=== PATIENT | female | born 2000 | race Caucasian/White ===

== ENCOUNTER 2023-08-13 20:56 | Emergency (ER) | payer OTHER, SELFPAY ==
[2023-08-13 21:30] VITALS: BP 110/57; PULSE 88; RESP 15; TEMP 36.6; O2SAT 98; BMI 22.0
[2023-08-13 21:45] LABS: MANUAL DIFF FLAG NO
[2023-08-13 21:48] LABS: Basophils Percent Auto 0.5 % (0-2); Eosinophils Absolute Auto 0.3 X10*3/uL (0.0-0.4); Hematocrit 40.5 % (37.0-47.0); Hemoglobin 13.7 g/dl (12.0-16.0); Imm Gran Abs Auto 0.02 X10*3/uL (0.00-0.03); Imm Gran Pct Auto 0.2 % (0.0-0.4); Lymphocytes Absolute Auto 2.6 X10*3/uL (1.2-4.9); Lymphocytes Percent Auto 30.5 % (20-40); Mean Corpuscular HGB Conc 33.8 g/dl (31.0-35.0); Mean Corpuscular Volume 94.6 fL (80.0-98.0); Mean Platelet Volume 10.1 fL (9.4-12.3); Monocytes Absolute Auto 0.6 X10*3/uL (0.1-1.2); Monocytes Percent Auto 6.7 % (2-11); Neutrophils Percent Auto 58.1 % (45-73); Platelet Count 299 X10*3/uL (160-400); Red Blood Count 4.28 X10*6/uL (4.20-5.50); Red Cell Distribution Width 12.5 % (11.0-16.0); White Blood Count 8.5 X10*3/uL (4.8-10.8)
[2023-08-13 22:08] LABS: Alanine Aminotransferase 13 U/L (0-31); Albumin Level 4.3 g/dL (3.5-5.0); Alkaline Phosphatase 35 U/L (39-117); Anion Gap 13 (12-20); Aspartate Amino Transferase 19 U/L (5-31); Bilirubin Total 0.7 mg/dL (0.0-1.0); Blood Urea Nitrogen 21 mg/dL (9-16); Calcium 9.1 mg/dL (8.4-10.2); Carbon Dioxide 24 mmol/L (22-29); Chloride 106 mmol/L (96-108); Creatinine Clr Calc Pharmacy 72.7; Estimated Glomerular Filt Rate > 60; Glucose Random 78 mg/dL (60-115); Sodium 139 mmol/L (135-145); Total Protein 7.8 g/dL (6.5-8.0)
[2023-08-14 00:08] VITALS: BP 98/53; PULSE 74; RESP 18; TEMP 36.7; O2SAT 100
--- NOTE | 2023-08-14 00:08 | ED.GENADULT ---
HPI - General Adult General Chief complaint: Skin/Abscess/Foreign Body Stated complaint: Abscess left leg Time Seen by Provider: 08/14/23 00:07 Source: patient and family (patient's parents) Mode of arrival: ambulatory Limitations: no limitations History of Present Illness HPI narrative: Patient is a 22 year old assigned female at with a history of pilonidal abscesses presenting to the emergency department today with a left lower abscess. Patient states that over the last month she has been dealing with a swollen area to her left lower leg. Patient states that at one point she was able to squeeze pus out of it. Patient denies any dizziness, lightheadedness, abdominal pain, nausea, vomiting, fever, chills, blurry vision, double vision, loss of vision, chest pain, difficulty breathing, shortness of breath, back pain, night sweats, pain with urination, increased urinary frequency, increased urinary urgency, blood in her urine or stool, syncope or a near syncopal episode, recent trauma or falls, bowel incontinence, bladder incontinence, bowel retention, bladder retention, or any other complaints at this time. Onset (ago): month(s) (1) Location: left and lower extremity Severity: mild Severity scale (1-10): 3 Quality: dull Pain Consistency: constant Relieving factors: none Exacerbating factors: none Associated symptoms: denies other symptoms Treatments prior to arrival: other (warm compresses) Related Data Previous Rx's ?Medication ?Instructions ?Recorded cephalexin 500 mg capsule 500 mg PO Q6H 7 days #28 caps 08/14/23 Allergies Allergy/AdvReac Type Severity Reaction Status Date / Time haloperidol [From HALDOL] Allergy Severe DIFFICULTY Unverified 08/13/23 21:35 BREATHING Sulfa (Sulfonamide Allergy Mild HIVES Unverified 08/13/23 21:35 Antibiotics) [SULFA (SULFONAMIDE ANTIBIOTICS)] Review of Systems Constitutional: Constitutional: Reports no additional constitutional complaints, Denies chills, Denies fever(s) and Denies night sweats Eyes: Eyes: Reports no additional eye complaints, Denies blurry vision, Denies change in vision, Denies diplopia, Denies eye discharge, Denies loss of vision and Denies eye pain ENT: Denies dizziness Cardiovascular: Cardiovascular: Reports no additional cardiovascular complaints, Denies chest pain, Denies lightheadedness, Denies Loss of Consciousness and Denies dyspnea Respiratory: Respiratory: Reports no additional respiratory complaints and Denies dyspnea Gastrointestinal: Gastrointestinal: Reports no additional gastrointestinal complaints, Denies abdominal pain, Denies melena, Denies hematochezia, Denies change in bowel habits and Denies change in stool character Genitourinary: Genitourinary: Denies hematuria, Denies urinary frequency, Denies dysuria, Denies urinary incontinence, Denies urinary hesitancy and Denies urinary urgency Musculoskeletal: Musculoskeletal: Reports no additional musculoskeletal complaints, Denies numbness and Denies tingling Comments: left lower extremity abscess Neurologic: Denies dizziness, Denies loss of vision, Denies numbness and Denies tingling Psychiatric: Psychiatric: Reports no additional psychiatric complaints Endocrine: Endocrine: Reports no additional endocrine complaints Hematologic/Lymphatic: Hematologic/Lymphatic: Reports no additional hematologic/lymphatic complaints Allergic/Immunologic: Allergic/Immunologic: Reports no additional allergic/immunologic complaints PMFSH Past Medical History Attestation statement: The following information was validated with the patient. (all information validated with the patient's parents) Source: old records reviewed, obtained from family (patient's parents provided additional history and confirmed the history provided by the patient.) and nursing notes reviewed Social History Social History Advance Directives: No Advance Directives Information Provided: Yes Physical Exam ED Vital Signs: Vital Signs - 24 hr 08/13/23 21:30 08/14/23 00:08 08/14/23 00:47 Temperature 97.9 F 98.0 F 98 F Pulse Rate 88 74 74 Respiratory Rate 15 18 18 Blood Pressure 110/57 L 98/53 L 98/53 L Pulse Oximetry 98 100 100 Oxygen Delivery Method Room Air Room Air Room Air BMI result Body Mass Index 22.0 Const General: cooperative, no acute distress, alert and awake Nutritional Appearance: well nourished Orientation/consciousness: patient oriented x3 Limitations: no limitations HENMT Head: Yes normal to inspection and Yes atraumatic Ears: hearing grossly normal bilaterally and external ears normal General nose exam: Normal external nose present, no nasal discharge noted and no epistaxis Face and sinus: Yes normal facial exam, No abrasion and No laceration Mouth: Normal oral and palatal mucosa present, no drooling and no muffled voice Eyes General: appearance normal, both eyes and all related structures Periorbital: periorbital findings normal Eyelids: Yes eyelids normal Conjunctivae: conjunctivae normal Pupils: Equal, round and reactive pupils present EOM: EOMs intact bilaterally Neck Neck: Yes normal visual inspection, Yes full ROM and Yes no lymphadenopathy Chest Chest palpation & inspection: normal inspection of the chest Resp Effort & Inspection: normal respiratory effort and able to speak in complete sentences GI Inspection: Yes normal to inspection Neuro General: patient oriented x3 and moves all extremities Cranial nerves: Yes Equal, round and reactive pupils present Cognition (Neuro): normal cognition Motor exam (neuro): 5/5 motor strength present throughout Sensory Exam: Normal double simultaneous stimulation for sensation Coordination: [id number] test normal Extrem General: Yes full ROM and Yes capillary refill normal Ankle/foot/toe images: 1. small area of erythema and warmth with no fluctuance Psych Appearance: grossly normal Mental Status: mental status grossly normal Affect: normal affect Attitude: cooperative Thought process: Normal thought process present Thought content: Normal thought content present Insight: Good insight present (Psych) Procedures Procedure Narrative Procedure Narrative: I performed a bed side ultrasound on the erythematous area of the left lower leg. No abscess was appreciated. Medical Decision Making Medical Decision Making MDM Narrative: Patient is a 22 year old assigned female at with a history of pilonidal abscesses presenting to the emergency department today with an abscess to the left lower leg. Patient's physical exam was as noted in the physical exam portion of this note. Patient's blood work was unremarkable. I explained my physical exam findings as well as all test results to the patient and the patient's parents. I answered all questions asked by the patient and the patient's parents. I stressed the importance of the patient taking her medication as prescribed. I stressed the importance of the patient following up with her primary care provider. I stressed the importance of the patient returning to the emergency department immediately if her symptoms were to worsen or if she were to develop any dizziness, shortness of breath, difficulty breathing, chest pain, blurry vision, loss of vision, nausea, vomiting, abdominal pain, fever, chills, back pain, or any other complaints. Patient and the patient's parents verbalized agreement and understanding with this treatment plan and discharge. Differential Diagnosis Differential Diagnoses: The differential diagnosis associated with the presentation includes Abscess Cyst Cellulitis Admission/Observation Consideration of admission/observation: Escalation of care including admission/observation considered Patient would have been admitted to the hospital had her work up had any findings where hospital admission was appropriate and her clinical presentation warranted hospital admission. Lab Data MDM Lab Attestation statement: I reviewed the patient's lab results. My interpretation of these studies and their corresponding values is that they are grossly normal. 08/13/23 21:42 08/13/23 21:42 Labs: Lab Results 08/13/23 Range/Units 21:42 WBC 8.5 (4.8-10.8) X10*3/uL RBC 4.28 (4.20-5.50) X10*6/uL Hgb 13.7 (12.0-16.0) g/dl Hct 40.5 (37.0-47.0) % MCV 94.6 (80.0-98.0) fL MCH 32.0 (27.0-33.0) pg MCHC 33.8 (31.0-35.0) g/dl RDW 12.5 (11.0-16.0) % Plt Count 299 (160-400) X10*3/uL MPV 10.1 (9.4-12.3) fL Immature Gran % (Auto) 0.2 (0.0-0.4) % Neut % (Auto) 58.1 (45-73) % Lymph % (Auto) 30.5 (20-40) % Geary % (Auto) 6.7 (2-11) % Eos % (Auto) 4.0 (0-4) % Baso % (Auto) 0.5 (0-2) % Lymph # (Auto) 2.6 (1.2-4.9) X10*3/uL Geary # (Auto) 0.6 (0.1-1.2) X10*3/uL Eos # (Auto) 0.3 (0.0-0.4) X10*3/uL Baso # (Auto) 0.0 (0.0-0.2) X10*3/uL Abs Immat Gran (auto) 0.02 (0.00-0.03) X10*3/uL Absolute Neuts (auto) 5.0 (2.0-8.3) x10*3/uL Absolute Nucleated RBC 0.000 (0.0-0.012) X10*3/uL Nucleated RBC % (auto) 0.0 (0.0-0.2) /100WBC Sodium 139 (135-145) mmol/L Potassium 4.0 (3.3-5.1) mmol/L Chloride 106 (96-108) mmol/L Carbon Dioxide 24 (22-29) mmol/L Anion Gap 13 (12-20) BUN 21 H (9-16) mg/dL Creatinine 0.96 (0.5-1.4) mg/dL Estim Creat Clear Calc 72.7 Estimated GFR > 60 Random Glucose 78 (60-115) mg/dL Calcium 9.1 (8.4-10.2) mg/dL Total Bilirubin 0.7 (0.0-1.0) mg/dL AST 19 (5-31) U/L ALT 13 (0-31) U/L Alkaline Phosphatase 35 L (39-117) U/L Total Protein 7.8 (6.5-8.0) g/dL Albumin 4.3 (3.5-5.0) g/dL Independent Historian Clinical information obtained from an independent historian. History obtained from or confirmed by: Parent (patient's parents provided additional history and confirmed the history provided by the patient) Tests considered The following testing was considered but not selected: I considered a formal ultrasound of the area of concern however, the patient's clinical presentation did not warrarnt that at this time. I discussed this with the patient and her parents who verbalized understanding and agreement. Prescription Management I considered prescription management with: Antibiotic (patient prescribed an antibiotic.) Discharge Plan Discharge Clinical Impression: Abscess Patient Disposition: Home, Self-Care Instructions: Abscess (ED) Additional Instructions: The area did not have any discrete abscess to drain on ultrasound. Apply warm compresses to the area. Take your antibiotic as prescribed. Follow up with your primary care provider and a general surgeon. Return to the emergency department immediately if your symptoms worsen or if you develop any dizziness, shortness of breath, difficulty breathing, chest pain, blurry vision, loss of vision, nausea, vomiting, abdominal pain, fever, chills, back pain, or any other complaints. Prescriptions: New cephalexin 500 mg capsule 500 mg PO Q6H 7 Days Qty: 28 0RF Referrals: [facility] [place] General Surgeons [Provider Group] (Call to establish and follow up with a general surgeon for possible future drainage of the area.) [facility] [place] (Call to establish and follow up with a primary care provider. If you already have a primary care provider, please follow up with them.) [facility] [place] [facility] [place]] [facility] [place] [facility] [place]] Stand Alone Forms: Work/School Release Interventions: ED Discharge Assessment Last Done: 08/14/23 00:47 Discharge Date/Time: 08/14/23 00:48 Print Language: Djiboutian
[2023-08-14 00:47] VITALS: BP 98/53; PULSE 74; RESP 18; TEMP 36.6; O2SAT 100
== END 2023-08-14 00:48 | disposition home or self-care (01) ==
PROVIDERS: Emergency Provider Emergency Medicine
DX: L02.416 Cutaneous abscess of left lower limb (principal)
CPT/HCPCS: 36415; 80053; 85025; 99283

== ENCOUNTER 2023-08-19 23:43 | Emergency (ER) | payer OTHER, SELFPAY ==
[2023-08-19 23:51] VITALS: BP 108/64; PULSE 95; RESP 16; TEMP 36.8; O2SAT 98; BMI 22.7
--- NOTE | 2023-08-20 01:34 | ED.SKABFB ---
HPI - Skin/Abscess/Foreign Bdy General Chief complaint: Skin/Abscess/Foreign Body Stated complaint: lefy lower leg abcess Time Seen by Provider: 08/20/23 01:33 Source: patient Mode of arrival: ambulatory Limitations: no limitations History of Present Illness HPI narrative: 22-year-old female who presents emergency department for evaluation of abscess to her left pretibial area of her lower extremity. Patient was seen on 08/14/2023 here in the emergency department for an early abscess that have been present for approximately 1 month. It was felt that the abscess was not ready to be drained and she was started on Keflex 4 times a day for 7 days. Patient has been applying warm compresses. Patient states that the erythema has gotten worse and the area in his center of the erythema has turned black and was raised. She denied fever, chills, fatigue or weakness. Related Data Previous Rx's ?Medication ?Instructions ?Recorded cephalexin 500 mg capsule 500 mg PO Q6H 7 days #28 caps 08/14/23 doxycycline hyclate 100 mg tablet 100 mg PO Q12H 5 days #10 tabs 08/20/23 Allergies Allergy/AdvReac Type Severity Reaction Status Date / Time haloperidol [From HALDOL] Allergy Severe DIFFICULTY Verified 08/19/23 23:52 BREATHING Sulfa (Sulfonamide Allergy Mild HIVES Verified 08/19/23 23:52 Antibiotics) [SULFA (SULFONAMIDE ANTIBIOTICS)] Review of Systems Review of Systems: Yes all other systems are reviewed and are negative [facility] Social History Social History Advance Directives: No Advance Directives Information Provided: No Do you have a plan to hurt others: No Plan Physical Exam Vital Signs: Vital Signs: Last Vital Signs Temp 98.2 F 08/19/23 23:51 Pulse 95 08/19/23 23:51 Resp 16 08/19/23 23:51 BP 108/64 08/19/23 23:51 Pulse Ox 98 08/19/23 23:51 O2 Del Method Room Air 08/19/23 23:51 BMI result Body Mass Index 22.7 Vital signs were normal Exam Left lower extremity: The patient has an area of erythema measuring approximately 10 by 5 cm with an abscess in the center of the erythema with a eschar in the middle of the abscess. The erythema is warm to touch. Her extremities neurovascular intact. Medical Decision Making Medical Decision Making MDM Narrative: 22-year-old female who presents emergency department for evaluation of abscess to the left lower extremity with surrounding cellulitis. Patient was seen in the emergency department on 08/14/2023 and was started on Keflex, she has been applying warm compresses. There is erythema which is warm to the touch with an abscess in the center of the erythema which is flocculent. Differential diagnosis: ?Includes but is not limited to cellulitis, abscess Following evaluation was ordered: Wound culture Patient was initially treated with the following: Doxycycline 100 mg orally, ibuprofen 400 mg orally Course: Patient's abscess was incised, drained and packed with iodoform gauze. The patient did have pain during the procedure but she tolerated the procedure well. Patient will be treated with doxycycline 100 mg q.12 hours x5 days. She was advised to take Tylenol and ibuprofen for pain. Patient was given printed and verbal instructions and discharged home. She was also given a work note. Independent Historian Clinical information obtained from an independent historian. History obtained from or confirmed by: Parent Mother who is a nurse Prescription Management I considered prescription management with: Antibiotic Procedures Abscess I/D Site: lower extremity Side (if applicable): left Local Anesthetic: lidocaine 1% Amount of anesthesia used (mL): 10 Technique: incised with blade (#11 Scalp) Amount of fluid expressed (mL): 15 Sent for culture/gram staining?: Yes Irrigation: No Packing used?: iodoform Discharge Plan Discharge Clinical Impression: Cellulitis, Abscess of left leg, Encounter for incision and drainage procedure Patient Disposition: Home, Self-Care Additional Instructions: Abscess Discharge Instructions You were treated today for an abscess( collection of pus under the skin). The abscess was cut, the pus was drained out and the abscess and the wound was packed with a piece of gauze packing. Change the outside gauze daily or if it gets soaked through with pus change it sooner. Try not to pull out the gauze packing when you remove the outside gauze. The gauze packing needs to stay in place for 3 days to help the pus drain out of the abscess. If the gauze falls out before 3 days and it DOES NOT need to be replaced. You need to remove the gauze in 3 days by pulling on the end until all of the gauze comes out. Take doxycycline 100 mg pills, one pill every 12 hours for 5 days. This is an antibiotic that will help fight the infection. Take ibuprofen 200mg pills,2 pills every 6 hours as needed for pain, Also take Tylenol(acetaminophen) 325 mg pills, 2 pills every 6 hours as needed for pain. Apply warm compresses or a heating pad on low for 15 minutes 4-6 times a day. This increases the blood flow to the area and helps the healing process. Keep your leg elevated, this will also help the healing process. Watch for signs of worsening infection which include fever, increased pain, increased redness or increased swelling, red lines traveling away from the wound. IF you think the infection is getting worse or if you develop any new symptoms that are concerning you, then return to the Emergency Department or follow up with your doctor for a recheck. Please follow up with your doctor in 2 days for a recheck. Please see the work note Prescriptions: New doxycycline hyclate 100 mg tablet 100 mg PO Q12H 5 Days Qty: 10 0RF No Action cephalexin 500 mg capsule 500 mg PO Q6H 7 Days Qty: 28 0RF Stand Alone Forms: Work/School Release Print Language: Citizen Of [place]
[2023-08-20] MEDS: Doxycycline Monohydrate 100 MG CAPSULE PO (02:27)
[2023-08-20] MEDS: Ibuprofen 400 MG TABLET PO (02:27)
[2023-08-20] MEDS: Lidocaine HCl 1 % MPF 5 ML VIAL INFILTRATI ×2 (02:28)
[2023-08-20 02:35] VITALS: BP 103/63; PULSE 74; RESP 16; TEMP 37; O2SAT 100
== END 2023-08-20 02:40 | disposition home or self-care (01) ==
PROVIDERS: Emergency Provider Emergency Medicine Emergency Medical Services
DX: L02.416 Cutaneous abscess of left lower limb (principal)
CPT/HCPCS: 10060; 87070; 87077; 87186; 87205; 99283; 99284

== ENCOUNTER 2024-07-04 01:12 | Inpatient (IN) | payer OTHER, SELFPAY ==
[2024-07-04 01:14] VITALS: BP 120/58; PULSE 82; RESP 18; TEMP 36.8; O2SAT 100; BMI 23.8
--- NOTE | 2024-07-04 01:24 | ED.PSYCH ---
HPI - Psych General Chief Complaint: Psychiatric Symptoms Stated Complaint: SI with no plan Time Seen by Provider: 07/04/24 01:22 Source: patient Mode of arrival: ambulatory Limitations: no limitations History of Present Illness ED Provider: RAFFI HPI Narrative: 23 yo female with PMH of anxiety and depression not on medications though has been on them in the past. No therapist she notes she has severe anxiety and depression and feels unstable and is very sad. Vague SI, no HI and no plan. She does have a safe place to live. No substance or ETOH use. She states she needs help and to talk to someone. She is very tearful on arrival. MD complaint: feels depressed and anxiety Onset (ago): month(s) Duration: getting worse History of same: Yes Relieving factors: none Exacerbating factors: other Context: significant life stressor Associated psychiatric symptoms: depression Associated symptoms: denies other symptoms Treatments prior to arrival: none Related Data Home Medications ?Medication ?Instructions ?Recorded ?Confirmed No Known Home Meds 07/04/24 07/04/24 Allergies Allergy/AdvReac Type Severity Reaction Status Date / Time haloperidol [From HALDOL] Allergy Severe DIFFICULTY Verified 07/04/24 01:16 BREATHING Sulfa (Sulfonamide Allergy Mild HIVES Verified 07/04/24 01:16 Antibiotics) [SULFA (SULFONAMIDE ANTIBIOTICS)] Review of Systems Review of Systems: Constitutional : No Fever, No Chills ENT/Mouth : No Ear Pain, No Nasal Congestion, No sore throat Eyes: No Eye Pain, No Swelling, No Redness Cardiovascular : No Chest Pain, No SOB Respiratory : No Cough, No Sputum, No Dyspnea Gastrointestinal : No Nausea, No Vomiting, No Diarrhea, No Hematochezia, No Melena Genitourinary : No Dysuria, No Urinary Frequency, No Hematuria Musculoskeletal : No Myalgias Skin : No Skin Lesions, No rash Neuro : No Weakness, No Numbness, No Paresthesias, No Dizziness, No Headache Psych : positive Anxiety, positive Depression, positive SI no HI All other systems reviewed and are negative PMFSH Past Medical History Attestation statement: The following information was validated with the patient. Source: old records reviewed Medical History Anxiety and depression Social History Social History (Updated 07/04/24 @ 01:32 by Yolis Monterroso DO) Patient Tobacco Use Status: Current everyday Tobacco user Do you have a plan to hurt others: No Plan Physical Exam Vital Signs: Vital Signs: Last Vital Signs Temp 98.3 F 07/04/24 01:14 Pulse 82 07/04/24 01:14 Resp 18 07/04/24 01:14 BP 120/58 L 07/04/24 01:14 Pulse Ox 100 07/04/24 01:14 O2 Del Method Room Air 07/04/24 01:14 BMI result Body Mass Index 23.8 Appearance: Alert. Oriented X3. No acute distress. Very tearful and crying Eyes: Pupils equal, round and reactive to light. ENT: Pharynx normal. Neck: Normal inspection. Neck supple. CVS: Normal heart rate and rhythm. Pulses normal. Respiratory: No respiratory distress. Breath sounds normal. Abdomen: Soft and nontender. Skin: Skin warm and dry. Normal skin color. Normal skin turgor. Extremities: No lower extremity edema. No calf ttp Neuro: Oriented X 3. No motor deficit. No sensory deficit. CN2-12 intact Course Course Course Narrative: signed out to Dr. Butterfield pending labs Medical Decision Making Medical Decision Making MDM Narrative: 23 yo female with PMH of anxiety and depression here with c/o worsening mental health, vague SI - no plan. States she needs help. She is not on any substances. At this time basic labs and CARE team consult. Differential Diagnosis Differential Diagnoses: The differential diagnosis associated with the presentation includes anxiety, depression, SI Admission/Observation Consideration of admission/observation: Escalation of care including admission/observation considered physician observation started at 133am External Record Review External record reviewed: Outpatient record Discharge Plan Discharge Clinical Impression: Depression Qualifiers: Depression Type: unspecified Qualified Code(s): F32.A - Depression, unspecified Patient Disposition: Still a Patient Prescriptions: No Action No Known Home Meds Print Language: Lithuanian
[2024-07-04] MEDS: hydrOXYzine HCL 50 MG TABLET PO (02:04)
[2024-07-04 02:44] LABS: MANUAL DIFF FLAG NO
[2024-07-04 02:46] LABS: Basophils Absolute Auto 0.1 X10*3/uL (0.0-0.2); Basophils Percent Auto 0.8 % (0-2); Eosinophils Absolute Auto 0.3 X10*3/uL (0.0-0.4); Eosinophils Percent Auto 4.7 % (0-4); Hematocrit 39.4 % (37.0-47.0); Hemoglobin 13.3 g/dl (12.0-16.0); Imm Gran Abs Auto 0.01 X10*3/uL (0.00-0.03); Imm Gran Pct Auto 0.1 % (0.0-0.4); Lymphocytes Absolute Auto 2.4 X10*3/uL (1.2-4.9); Lymphocytes Percent Auto 32.4 % (20-40); Mean Corpuscular HGB Conc 33.8 g/dl (31.0-35.0); Mean Corpuscular Hemoglobin 32.3 pg (27.0-33.0); Mean Corpuscular Volume 95.6 fL (80.0-98.0); Mean Platelet Volume 9.9 fL (9.4-12.3); Monocytes Absolute Auto 0.6 X10*3/uL (0.1-1.2); Monocytes Percent Auto 8.8 % (2-11); Neutrophils Absolute Auto 3.9 x10*3/uL (2.0-8.3); Neutrophils Percent Auto 53.2 % (45-73); Platelet Count 301 X10*3/uL (160-400); Red Blood Count 4.12 X10*6/uL (4.20-5.50); Red Cell Distribution Width 13.2 % (11.0-16.0); White Blood Count 7.3 X10*3/uL (4.8-10.8)
[2024-07-04 03:16] LABS: Acetaminophen LAB < 3 mcg/mL (<30); Salicylate < 5.0 mg/dL (15-30)
[2024-07-04 03:18] LABS: Alanine Aminotransferase 18 U/L (0-31); Alkaline Phosphatase 38 U/L (39-117); Anion Gap 12 (12-20); Aspartate Amino Transferase 20 U/L (5-31); Bilirubin Total 0.4 mg/dL (0.0-1.0); Blood Urea Nitrogen 20 mg/dL (9-16); Calcium 9.1 mg/dL (8.4-10.2); Carbon Dioxide 25 mmol/L (22-29); Chloride 110 mmol/L (96-108); Creatinine Clr Calc Pharmacy 84.3; Estimated Glomerular Filt Rate > 60; Ethanol < 10 mg/dL; Glucose Random 91 mg/dL (60-115); Potassium 4.6 mmol/L (3.3-5.1); Sodium 142 mmol/L (135-145); Total Protein 7.4 g/dL (6.5-8.0)
--- NOTE | 2024-07-04 05:08 | PC.NURSE ---
Patient is in bed appears sleeping, no distress observed/reported, care consult ordered/pending evaluation, med rec completed/currently not on any medication, Care consult ordered/pending evaluation, VSS, will continue to monitor
[2024-07-04 06:19] LABS: Appearance Urine Clear; Color Urine Yellow; Glucose Urine UA Negative (Negative); Leukocyte Esterase Urine Negative (Negative); Nitrite Urine Negative (Negative); Specific Gravity - Urine >= 1.030 (1.005-1.025); Urine Blood Negative (Negative); Urine Ketones Trace mg/dL (Negative); Urine Protein Trace mg/dL (Neg-Trace)
[2024-07-04 06:20] LABS: UPreg QC Valid YES; Urine Pregnancy NEGATIVE (NEGATIVE)
[2024-07-04 06:29] LABS: Amphetamine Screen Urine Not Detected (Not Detect); Barbiturates, Urine Not Detected (Not Detect); Benzodiazepines Screen Urine Not Detected (Not Detect); Buprenorphine Scr Not Detected (Not Detect); Cannabinoid Screen Urine POSITIVE (Not Detect); Cocaine Screen Urine Not Detected (Not Detect); Fentanyl, urine Not Detected (Not Detect); Methadone Screen, Urine Not Detected (Not Detect); Opiate Screen Urine Not Detected (Not Detect); Oxycodone Screen Urine Not Detected (Not Detect); Phencyclidine Screen Urine Not Detected (Not Detect)
[2024-07-04 06:52] LABS: COVID-19 Test Negative (Negative); IDNOW Serial# 6674DD1D
--- NOTE | 2024-07-04 07:56 | PC.NURSE ---
Pt has been sleeping. Chest rise noted. NAD.
--- NOTE | 2024-07-04 09:02 | PC.NURSE ---
Has been seen by CARE Team. Plan is inpatient. Pt is calm. denies home meds and SI. crying.
--- NOTE | 2024-07-04 11:51 | PHA.MEDREC ---
Pharmacy Consult ? Medication Reconciliation Pharmacy reviewed med rec done by nursing. Spoke with patient and she confirmed she is not taking anything at this time for medications.
--- NOTE | 2024-07-04 11:54 | PHA.MEDREC ---
Addendum entered by Nkechi Green RPh 07/04/24 12:40: Reviewed by [facility] Original Note: Pharmacy Consult ? Medication Reconciliation Pharmacy reviewed med rec done by nursing. No Known home Meds confirmed. Spoke with patient and she confirmed she is not taking anything at this time for medications.
[2024-07-04 15:52] VITALS: BP 99/57; PULSE 67; RESP 18; TEMP 37.1; O2SAT 100
--- NOTE | 2024-07-04 17:00 | PC.NURSE ---
RN to RN with Sherley.
[2024-07-04] MEDS: Ibuprofen 400 MG TABLET PO (17:44)
[2024-07-04] MEDS: Nicotine Polacrilex 2 MG GUM 4 MG BUCCAL ×2 (19:23→22:15)
[2024-07-04 20:00] VITALS: BP 108/64; PULSE 68; RESP 14; TEMP 36.2; O2SAT 97
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
[2024-07-04] MEDS: Flu Vacc TS2024-25(6mos up)/PF 0.5 ML SYRINGE IM (21:06)
[2024-07-05 07:42] VITALS: BP 102/55; PULSE 63; RESP 16; TEMP 36.7; O2SAT 99
[2024-07-05 08:13] LABS: Estimated Average Glucose 91 mg/dL; Hemoglobin A1c % 4.8 % (<6.0)
[2024-07-05 08:21] LABS: Alanine Aminotransferase 17 U/L (0-31); Albumin Level 4.2 g/dL (3.5-5.0); Alkaline Phosphatase 34 U/L (39-117); Anion Gap 12 (12-20); Aspartate Amino Transferase 17 U/L (5-31); Bilirubin Total 0.7 mg/dL (0.0-1.0); Blood Urea Nitrogen 19 mg/dL (9-16); Calcium 9.2 mg/dL (8.4-10.2); Carbon Dioxide 26 mmol/L (22-29); Chloride 107 mmol/L (96-108); Creatinine Clr Calc Pharmacy 89.8; Estimated Glomerular Filt Rate > 60; Glucose Fasting 90 mg/dL (60-99); Sodium 141 mmol/L (135-145); Total Protein 7.7 g/dL (6.5-8.0)
[2024-07-05 08:27] LABS: Cholesterol 131 mg/dL (<200); HDL Cholesterol 57 mg/dL (>40); LDL Cholesterol Calculated 63 mg/dL (<100); Triglycerides 56 mg/dL (<150)
[2024-07-05 08:43] LABS: TSH reflex Free T4 0.99 uIU/mL (0.32-4.0)
[2024-07-05] MEDS: Nicotine Polacrilex 2 MG GUM 4 MG BUCCAL ×3 (09:01→18:46)
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
[2024-07-05 16:03] LABS: Urine Pregnancy NEGATIVE (NEGATIVE)
[2024-07-05 16:04] LABS: UPreg QC Valid YES
[2024-07-05 19:51] VITALS: BP 120/61; PULSE 79; TEMP 36.7; O2SAT 99
[2024-07-06] MEDS: Nicotine Polacrilex 2 MG GUM 4 MG BUCCAL ×4 (01:20→21:48)
[2024-07-06 08:59] VITALS: BP 120/64; PULSE 69; TEMP 36.4; O2SAT 100
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
[2024-07-06 19:41] VITALS: BP 117/74; PULSE 91; RESP 15; TEMP 36.4; O2SAT 98
[2024-07-07] MEDS: Nicotine Polacrilex 2 MG GUM 4 MG BUCCAL ×3 (01:35→19:48)
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
[2024-07-07] MEDS: Acetaminophen 325 MG TABLET 650 MG PO (21:20)
[2024-07-07 22:45] VITALS: BP 118/64; PULSE 72; TEMP 36.9; O2SAT 99
[2024-07-08 08:00] VITALS: BP 134/60; PULSE 79; RESP 16; TEMP 36.4; O2SAT 99
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
[2024-07-08 19:28] VITALS: BP 121/56; PULSE 88; TEMP 36.9; O2SAT 100
[2024-07-09 07:47] VITALS: BP 138/65; PULSE 71; RESP 16; TEMP 36.6; O2SAT 100
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
[2024-07-09] MEDS: Ibuprofen 600 MG TABLET PO ×2 (09:14→18:24)
[2024-07-09] MEDS: Benzocaine 20 % Oral Gel 9 GM TUBE 1 APPL MUCOUS MEM (18:29)
[2024-07-09 19:55] VITALS: BP 123/63; PULSE 75; RESP 16; TEMP 36.7; O2SAT 99
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
[2024-07-10 08:15] VITALS: BP 113/59; PULSE 66; TEMP 36.3; O2SAT 100
== END 2024-07-10 11:30 | disposition home or self-care (01) | DRG 753 ==
LOC: HO.ED 02:06 → HO.PM5 16:16
PROVIDERS: Admitting Provider Psychiatry & Neurology Psychiatry; Emergency Provider Emergency Medicine; Visit Provider Psychiatry & Neurology Psychiatry
DX: F31.9 Bipolar disorder, unspecified (principal); R45.851 Suicidal ideations; F43.10 Post-traumatic stress disorder, unspecified; F17.210 Nicotine dependence, cigarettes, uncomplicated; Z20.822 Contact with and (suspected) exposure to COVID-19; Z71.6 Tobacco abuse counseling; Z59.02 Unsheltered homelessness; Z23 Encounter for immunization
CPT/HCPCS: 36415; 80053; 80061; 80143; 80179; 80307; 81003; 81025; 83036; 84443; 85025; 87635; 90656; 99285; S9485

== ENCOUNTER → 2024-07-04 16:02 | Outpatient (BNV) | payer OTHER, SELFPAY | PROVIDERS: Admitting Provider Psychiatry & Neurology Psychiatry; Emergency Provider Emergency Medicine; Visit Provider Psychiatry & Neurology Psychiatry | DX: F31.9 Bipolar disorder, unspecified (principal); F43.10 Post-traumatic stress disorder, unspecified | CPT/HCPCS: 99232 ==

== ENCOUNTER 2025-02-14 18:28 | Emergency (ER) | payer OTHER, SELFPAY ==
--- NOTE | 2025-02-14 18:41 | ED.NAVMDI ---
HPI - Nausea/Vomiting/Diarrhea General Chief complaint: Nausea/Vomiting/Diarrhea Stated complaint: vomiting Time Seen by Provider: 02/14/25 21:45 History of Present Illness ED Provider: Danis JONES Narrative: The patient is a 24-year-old woman. She says that during the last week she was having unusual episodes of nausea and vomiting. The symptoms were more prominent in the in the evenings and at night. It did not happen every day but has been several days during the last week. She says she was at work yesterday and 1 of her coworkers had to leave because of vomiting and diarrhea. Today the patient experienced a great deal of vomiting and diarrhea and ultimately came to the emergency department. She has some diffuse abdominal discomfort but for the most part her symptoms has been nausea, vomiting and diarrhea. No definite fever. No recent travel. No recent antibiotics. The patient has an implanted Nexplanon device for contraception. She has a regular boyfriend. Her last sexual intercourse was about 7 days ago. No vaginal discharge. Related Data Previous Rx's ?Medication ?Instructions ?Recorded hydroxyzine HCl 25 mg tablet 25 mg PO Q6H PRN mild anxiety 30 07/09/24 days #90 tabs nicotine (polacrilex) 4 mg gum 4 mg buccal Q2H PRN nicotine 07/09/24 cravings 30 days #100 ea ondansetron 4 mg disintegrating 4 mg PO Q6H PRN nausea and 02/15/25 tablet vomiting #10 tabs Allergies Allergy/AdvReac Type Severity Reaction Status Date / Time haloperidol (From HALDOL) Allergy Severe DIFFICULTY Verified 02/14/25 19:08 BREATHING Sulfa (Sulfonamide Allergy Mild HIVES Verified 02/14/25 19:08 Antibiotics) (SULFA (SULFONAMIDE ANTIBIOTICS)) Review of Systems Review of Systems: Yes all other systems are reviewed and are negative PMFSH Past Medical History Medical History (Updated 02/15/25 @ 00:09 by Phu Moscoso MD) Depression PTSD (post-traumatic stress disorder) Bipolar disorder, unspecified Anxiety and depression Social History Social History (Updated 07/04/24 @ 01:32 by Yolis Monterroso DO) Household Members: None Housing: Homeless Do you presently have visiting nurse or other home services: No Patient Tobacco Use Status: Current everyday Tobacco user e-Cigarette/Vaping Use: Currently Using Substance Use Type: Marijuana Advance Directives: No Advance Directives Information Provided: Yes Do you have a plan to hurt others: No Plan service: No Sexual orientation: Questioning Physical Exam Vital Signs: Vital Signs: Last Vital Signs Temp 0 F L 02/15/25 00:27 Pulse 68 02/15/25 00:27 Resp 18 02/15/25 00:27 BP 130/72 02/15/25 00:27 Pulse Ox 99 02/15/25 00:27 O2 Del Method Room Air 02/15/25 00:27 BMI result Body Mass Index 224.9 Const: Other: The patient was awake and alert and was behaving in an extremely histrionic manner, throwing herself around the stretcher claiming that she was feeling extremely uncomfortable and ill. HEENT: Other: The face is symmetrical. ?Mucous membranes moist. Eyes: Other: Pupils are round equal, conjunctivae are clear, extraocular movements intact Neck: Neck: Yes normal visual inspection and Yes full ROM Resp: Effort & Inspection: normal respiratory effort Auscultation: clear to auscultation bilaterally Cardio: Rate: regular rate Rhythm: regular rhythm Heart sounds: S1 normal heart sound present and S2 normal heart sound present GI: Other: The abdomen is flat and soft. There was some mild diffuse tenderness but no definite focal tenderness. I was able to push into the right lower quadrant quite deeply without causing any apparent discomfort. There was no rebound or guarding. Skin: Other: The skin is dry and unremarkable Neuro: Other: The patient was awake and alert and behaving in a very dramatic and histrionic manner. Cranial nerves were intact. She is moving her extremities normally and appropriately. No focal findings. Extrem: Other: There is no calf swelling or tenderness. No asymmetry. No peripheral edema. Course Course Course Narrative: This is a Rapid Medical Exam performed in triage by Keily Pedersen PA-C. Full HPI, ROS and PE to be performed by primary ED provider. 24 yo F w/pmhx PTSD, Bipolar, anxiety/depression, presenting to the ED c/o nausea & vomiting x6hrs with some diarrhea. Admits to ETOH use last night but not today. +chills, fatigue. denies drug use PE: anxious, abdomen soft with mild lower ttp, no rebound or guarding Plan: labs, UA, Zofran given in triage Medications Administered Discontinued Medications Generic Name Dose Route Start Last Admin Trade Name Angela PRN Reason Stop Dose Admin Diphenhydramine HCl 25 mg 02/14/25 21:49 02/14/25 22:00 Diphenhydramine Hcl 50 Mg/Ml Vial IVPUSH 02/14/25 21:50 25 mg ONCE ONE Administration Metoclopramide HCl 10 mg 02/14/25 21:49 02/14/25 21:59 Metoclopramide Hcl 10 Mg/2 Ml Vial IVPUSH 02/14/25 21:50 10 mg ONCE ONE Administration Morphine Sulfate 5 mg 02/14/25 21:49 02/14/25 21:59 Morphine Sulfate 10 Mg/Ml Cartridge IVPUSH 02/14/25 21:50 5 mg ONCE ONE Administration Protocol Ondansetron HCl 4 mg 02/14/25 19:04 02/14/25 19:09 Ondansetron Odt 4 Mg Tab.Rapdis TRANSLINGU 02/14/25 19:05 4 mg ONCE ONE Administration Medical Decision Making Medical Decision Making [facility] Narrative: The patient is a 24-year-old female who presents to the emergency room with nausea, vomiting, and diarrhea. She is not complaining of abdominal pain to a great degree in her abdomen seems benign. The patient was treated symptomatically with IV morphine, metoclopramide, and diphenhydramine and IV fluids. She felt much better and said that she was very hungry and thirsty. She drank meg luis fernando and ate crackers. She tolerated this well and looked extremely well. She looked much better considering how histrionic she had seemed at 1st. [place] [address] but a normal CRP. Other labs are unremarkable aside from a serum test which gave an hCG of 10. This is an unusual result and so we ran a urine test that came back negative. Since the patient has a Nexplanon device implanted I think the negative test is the accurate test. The patient otherwise looked much better. I explained my thinking about her test results. She will be discharged with a prescription for ondansetron. If she feels significantly worse she should return to the emergency room. Lab Data 02/14/25 19:34 02/14/25 19:34 Labs: Lab Results 02/14/25 02/14/25 Range/Units 19:34 22:04 WBC 13.3 H (4.8-10.8) X10*3/uL RBC 4.72 (4.20-5.50) X10*6/uL Hgb 14.8 (12.0-16.0) g/dl Hct 45.1 (37.0-47.0) % MCV 95.6 (80.0-98.0) fL MCH 31.4 (27.0-33.0) pg MCHC 32.8 (31.0-35.0) g/dl RDW 12.4 (11.0-16.0) % Plt Count 361 (160-400) X10*3/uL MPV 9.7 (9.4-12.3) fL Immature Gran % (Auto) 0.5 H (0.0-0.4) % Neut % (Auto) 87.1 H (45-73) % Lymph % (Auto) 10.1 L (20-40) % Cole % (Auto) 2.0 (2-11) % Eos % (Auto) 0.0 (0-4) % Baso % (Auto) 0.3 (0-2) % Lymph # (Auto) 1.3 (1.2-4.9) X10*3/uL Cole # (Auto) 0.3 (0.1-1.2) X10*3/uL Eos # (Auto) 0.0 (0.0-0.4) X10*3/uL Baso # (Auto) 0.0 (0.0-0.2) X10*3/uL Abs Immat Gran (auto) 0.07 H (0.00-0.03) X10*3/uL Absolute Neuts (auto) 11.6 H (2.0-8.3) x10*3/uL Absolute Nucleated RBC 0.000 (0.0-0.012) X10*3/uL Nucleated RBC % (auto) 0.0 (0.0-0.2) /100WBC Sodium 142 (135-145) mmol/L Potassium 4.2 (3.3-5.1) mmol/L Chloride 107 (96-108) mmol/L Carbon Dioxide 19 L (22-29) mmol/L Anion Gap 20 (12-20) BUN 22 H (9-16) mg/dL Creatinine 0.68 (0.5-1.4) mg/dL Estim Creat Clear Calc 509.9 Estimated GFR > 60 Random Glucose 96 (60-115) mg/dL Calcium 9.6 (8.4-10.2) mg/dL Magnesium 2.0 (1.6-2.6) mg/dL Total Bilirubin 0.7 (0.0-1.0) mg/dL Direct Bilirubin 0.3 (0.0-0.5) mg/dL AST 34 H (5-31) U/L ALT 18 (0-31) U/L Alkaline Phosphatase 49 (39-117) U/L C-Reactive Protein < 0.04 (< or = 0.50) mg/dL Total Protein 8.5 H (6.5-8.0) g/dL Albumin 5.2 H (3.5-5.0) g/dL Lipase 17 (8-78) U/L Beta HCG, Quant 11 mIU/mL Urine Color Yellow Urine Appearance Clear Urine pH 6.0 (5.0-9.0) Ur Specific [place] >= 1.030 H (1.005-1.025) Urine Protein 30 (1+) H (Neg-Trace) mg/dL Urine Glucose (UA) Negative (Negative) mg/dL Urine Ketones >=160 (Negative) mg/dL Urine Blood Small (1+) H (Negative) Urine Nitrite Negative (Negative) Ur Leukocyte Esterase Negative (Negative) Urine RBC 6-10 H (0-2) /HPF Urine WBC 0-5 (0-5) /HPF Ur Squamous Epith Cells 3-5 (0-2) /HPF Urine Bacteria None Seen (None Seen) Hyaline Casts 0-2 (0-2) /LPF Urine Test NEGATIVE (NEGATIVE) Urine Opiates Screen Not Detected (Not Detect) Ur Buprenorphine Scrn Not Detected (Not Detect) ng/mL Ur Oxycodone Screen Not Detected (Not Detect) ng/mL Urine Methadone Screen Not Detected (Not Detect) ng/mL Urine Fentanyl Screen Not Detected (Not Detect) Ur Barbiturates Screen Not Detected (Not Detect) Ur Phencyclidine Scrn Not Detected (Not Detect) Ur Amphetamines Screen Not Detected (Not Detect) U Benzodiazepines Scrn Not Detected (Not Detect) Urine Cocaine Screen Not Detected (Not Detect) U Marijuana (THC) Screen POSITIVE H (Not Detect) Discharge Plan Discharge Clinical Impression: Nausea, vomiting, and diarrhea Patient Disposition: Home, Self-Care Additional Instructions: Please fill the prescription for the medication ondansetron. You may use this medication as needed for nausea. Otherwise rest and take it easy for the next couple of days. Drink lot of liquids. Eat simple foods like toast and rice for the 1st day or 2. If you are feeling better you can eat more complex foods. Return to the emergency room if you feel significantly worse. Please work on getting a primary care doctor. You has been given the contact information for some local primary care offices. Prescriptions: New ondansetron 4 mg tablet,disintegrating 4 mg PO Q6H PRN (Reason: nausea and vomiting) Qty: 10 0RF No Action nicotine (polacrilex) 4 mg gum 4 mg buccal Q2H PRN (Reason: nicotine cravings) 30 Days Qty: 100 0RF hydroxyzine HCl 25 mg Tablet 25 mg PO Q6H PRN (Reason: mild anxiety) 30 Days Qty: 90 0RF Referrals: [facility] [Provider Group] [facility] [place] [Provider Group, Internal Medicine] [facility] [place] [Provider Group, Internal Medicine] [facility], [facility] [Provider Group, Primary Care] Jill Emmanuel MD [Physician, Internal Medicine] Interventions: ED Discharge Assessment Last Done: 02/15/25 00:27 Discharge Date/Time: 02/15/25 00:28 Print Language: Austrian
[2025-02-14 19:07] VITALS: BP 110/75; PULSE 63; RESP 14; TEMP 36.4; O2SAT 100; BMI 224.9
[2025-02-14 19:39] LABS: MANUAL DIFF FLAG NO
[2025-02-14 19:42] LABS: Hematocrit 45.1 % (37.0-47.0); Hemoglobin 14.8 g/dl (12.0-16.0); Imm Gran Abs Auto 0.07 X10*3/uL (0.00-0.03); Imm Gran Pct Auto 0.5 % (0.0-0.4); Lymphocytes Absolute Auto 1.3 X10*3/uL (1.2-4.9); Mean Corpuscular HGB Conc 32.8 g/dl (31.0-35.0); Mean Corpuscular Hemoglobin 31.4 pg (27.0-33.0); Mean Corpuscular Volume 95.6 fL (80.0-98.0); NRBC Abs Auto 0.000 X10*3/uL (0.0-0.012); NRBC Pct Auto 0.0 /100WBC (0.0-0.2); Platelet Count 361 X10*3/uL (160-400); Red Blood Count 4.72 X10*6/uL (4.20-5.50); White Blood Count 13.3 X10*3/uL (4.8-10.8)
[2025-02-14 20:05] LABS: Alanine Aminotransferase 18 U/L (0-31); Albumin Level 5.2 g/dL (3.5-5.0); Alkaline Phosphatase 49 U/L (39-117); Anion Gap 20 (12-20); Aspartate Amino Transferase 34 U/L (5-31); Blood Urea Nitrogen 22 mg/dL (9-16); Calcium 9.6 mg/dL (8.4-10.2); Carbon Dioxide 19 mmol/L (22-29); Chloride 107 mmol/L (96-108); Creatinine Clr Calc Pharmacy 509.9; Estimated Glomerular Filt Rate > 60; Lipase 17 U/L (8-78); Magnesium 2.0 mg/dL (1.6-2.6); Potassium 4.2 mmol/L (3.3-5.1); Sodium 142 mmol/L (135-145); Total Protein 8.5 g/dL (6.5-8.0)
[2025-02-14 22:00] VITALS: BP 127/77; PULSE 82; RESP 20; O2SAT 99
[2025-02-14 22:21] LABS: Cannabinoid Screen Urine POSITIVE (Not Detect)
[2025-02-14 22:26] LABS: Appearance Urine Clear; Glucose Urine UA Negative (Negative); PH 6.0 (5.0-9.0); Specific Gravity - Urine >= 1.030 (1.005-1.025); UMIC TRIGGER UACC YES
[2025-02-14 22:27] LABS: UPreg QC Valid YES
[2025-02-15 00:27] VITALS: BP 130/72; PULSE 68; RESP 18; TEMP -17.7; TEMP 0; O2SAT 99
== END 2025-02-15 00:28 | disposition home or self-care (01) ==
PROVIDERS: Physician Assistant; Emergency Provider Emergency Medicine
DX: R11.2 Nausea with vomiting, unspecified (principal); R19.7 Diarrhea, unspecified; F17.200 Nicotine dependence, unspecified, uncomplicated; Z71.6 Tobacco abuse counseling; F31.9 Bipolar disorder, unspecified; F41.9 Anxiety disorder, unspecified; Z79.899 Other long term (current) drug therapy
CPT/HCPCS: 36415; 80048; 80076; 80307; 81001; 81025; 83690; 83735; 84702; 85025; 86140; 96374; 96375; 99284; J1200; J2270; J2765

== ENCOUNTER 2025-02-18 14:32 | Inpatient (IN) | payer OTHER, SELFPAY ==
[2025-02-18 14:37] VITALS: BP 137/75; PULSE 97; RESP 18; TEMP 36.5; O2SAT 98; BMI 24.4
--- NOTE | 2025-02-18 14:40 | ED.GENADULT ---
HPI - General Adult General Chief complaint: Psychiatric Symptoms Stated complaint: Suicidal Allegations Time Seen by Provider: 02/18/25 14:48 Source: patient and family (patient's mother) Mode of arrival: ambulatory Limitations: no limitations History of Present Illness ED Provider: Liz Christianson PA-C HPI narrative: Patient is a 24 year old assigned female at with a history of bipolar disorder and PTSD presenting to the emergency department today with suicidal ideation and medication non compliance. Patient states that she expressed she was suicidal to family and stated I have my ways . Patient states that she has not been taking her medications. Patient denies any other complaints at this time. Related Data Previous Rx's ?Medication ?Instructions ?Recorded hydroxyzine HCl 25 mg tablet 25 mg PO Q6H PRN mild anxiety 30 07/09/24 days #90 tabs nicotine (polacrilex) 4 mg gum 4 mg buccal Q2H PRN nicotine 07/09/24 cravings 30 days #100 ea ondansetron 4 mg disintegrating 4 mg PO Q6H PRN nausea and 02/15/25 tablet vomiting #10 tabs Allergies Allergy/AdvReac Type Severity Reaction Status Date / Time haloperidol (From HALDOL) Allergy Severe DIFFICULTY Verified 02/18/25 14:40 BREATHING Sulfa (Sulfonamide Allergy Mild HIVES Verified 02/18/25 14:40 Antibiotics) (SULFA (SULFONAMIDE ANTIBIOTICS)) Review of Systems Constitutional: Constitutional: Reports as per HPI Eyes: Eyes: Reports as per HPI ENT: Reports as per HPI Cardiovascular: Cardiovascular: Reports as per HPI Respiratory: Respiratory: Reports as per HPI Gastrointestinal: Gastrointestinal: Reports as per HPI Genitourinary: Genitourinary: Reports as per HPI Musculoskeletal: Musculoskeletal: Reports as per HPI Integumentary/Breasts: Skin/Breast: Reports as per HPI Neurologic: Reports as per HPI Psychiatric: Psychiatric: Reports as per HPI Endocrine: Endocrine: Reports as per HPI Hematologic/Lymphatic: Hematologic/Lymphatic: Reports as per HPI Allergic/Immunologic: Allergic/Immunologic: Reports as per HPI [facility] Past Medical History Attestation statement: The following information was validated with the patient. (all information validated with the patient's mother) Source: old records reviewed, obtained from family (patient's mother provided additional history and confirmed the history provided by the patient) and nursing notes reviewed Medical History Depression PTSD (post-traumatic stress disorder) Bipolar disorder, unspecified Anxiety and depression Social History Social History Household Members: None Housing: Homeless Do you presently have visiting nurse or other home services: No Patient Tobacco Use Status: Current everyday Tobacco user Smoked in Last 30 Days: Yes e-Cigarette/Vaping Use: Currently Using Substance Use Type: Marijuana Substance Use Frequency: Daily Advance Directives: No Advance Directives Information Provided: Yes service: No Sexual orientation: Questioning Physical Exam ED Vital Signs: Vital Signs - 24 hr 02/18/25 14:37 Temperature 97.7 F Pulse Rate 97 Respiratory Rate 18 Blood Pressure 137/75 Pulse Oximetry 98 BMI result Body Mass Index 24.4 Const General: cooperative, no acute distress, alert and awake Nutritional Appearance: well nourished Orientation/consciousness: patient oriented x3 HENMT Head: Yes normal to inspection and Yes atraumatic Ears: hearing grossly normal bilaterally and external ears normal General nose exam: Normal external nose present, no nasal discharge noted and no epistaxis Face and sinus: Yes normal facial exam, No abrasion and No laceration Mouth: Normal oral and palatal mucosa present, no drooling and no muffled voice Eyes General: appearance normal, both eyes and all related structures Periorbital: periorbital findings normal Eyelids: Yes eyelids normal Conjunctivae: conjunctivae normal Pupils: Equal, round and reactive pupils present EOM: EOMs intact bilaterally Neck Neck: Yes normal visual inspection and Yes full ROM Resp Effort & Inspection: normal respiratory effort and able to speak in complete sentences Neuro General: patient oriented x3, moves all extremities and CN's II-XI intact bilaterally Cranial nerves: Yes Equal, round and reactive pupils present Cognition (Neuro): normal cognition Extrem General: Yes normal to inspection, Yes full ROM and Yes capillary refill normal Psych Appearance: grossly normal Mental Status: mental status grossly normal Affect: Labile affect present Course Course Course Narrative: RME: 24 yold female presents to the ED for SI ideation and depressed. patient wants help. labs and care team consult placed. Medications Administered Generic Name Dose Route Start Last Admin Trade Name Freq PRN Reason Stop Dose Admin Nicotine Polacrilex 2 mg 02/18/25 16:00 02/18/25 21:29 Nicotine Polacrilex 2 Mg Gum BUCCAL 2 mg Q1H PRN Administration Nicotine Cravings Medical Decision Making Medical Decision Making [facility] Narrative: Patient is a 24 year old assigned female at with a history of bipolar disorder and PTSD presenting to the emergency department today with suicidal ideation and medication non compliance. Patient's physical exam was as noted in the physical exam portion of this note. Patient's blood work was unremarkable. I explained my physical exam findings as well as all test results to the patient and the patient's mother. I answered all questions asked by the patient and the patient's mother. Patient placed in observation at 1449 pending CARE team evaluation and disposition determination. Differential Diagnosis Differential Diagnoses: The differential diagnosis associated with the presentation includes Suicidal ideation Bipolar disorder Medication noncompliance Admission/Observation Consideration of admission/observation: Escalation of care including admission/observation considered Patient's disposition will be determined after CARE team evaluation. Lab Data [facility] Lab Attestation statement: I reviewed the patient's lab results. My interpretation of these results are in the MDM Rationale portion of this note. 02/18/25 15:21 02/18/25 15:21 Labs: Lab Results 02/18/25 02/18/25 Range/Units 15:14 15:21 WBC 8.1 (4.8-10.8) X10*3/uL RBC 4.68 (4.20-5.50) X10*6/uL Hgb 14.7 (12.0-16.0) g/dl Hct 44.5 (37.0-47.0) % MCV 95.1 (80.0-98.0) fL MCH 31.4 (27.0-33.0) pg MCHC 33.0 (31.0-35.0) g/dl RDW 12.3 (11.0-16.0) % Plt Count 320 (160-400) X10*3/uL MPV 9.7 (9.4-12.3) fL Immature Gran % (Auto) 0.2 (0.0-0.4) % Neut % (Auto) 66.7 (45-73) % Lymph % (Auto) 25.7 (20-40) % [place] % (Auto) 5.7 (2-11) % Eos % (Auto) 1.0 (0-4) % Baso % (Auto) 0.7 (0-2) % Lymph # (Auto) 2.1 (1.2-4.9) X10*3/uL [place] # (Auto) 0.5 (0.1-1.2) X10*3/uL Eos # (Auto) 0.1 (0.0-0.4) X10*3/uL Baso # (Auto) 0.1 (0.0-0.2) X10*3/uL Abs Immat Gran (auto) 0.02 (0.00-0.03) X10*3/uL Absolute Neuts (auto) 5.4 (2.0-8.3) x10*3/uL Absolute Nucleated RBC 0.000 (0.0-0.012) X10*3/uL Nucleated RBC % (auto) 0.0 (0.0-0.2) /100WBC Sodium 142 (135-145) mmol/L Potassium 3.8 (3.3-5.1) mmol/L Chloride 108 (96-108) mmol/L Carbon Dioxide 26 (22-29) mmol/L Anion Gap 12 (12-20) BUN 17 H (9-16) mg/dL Creatinine 0.67 (0.5-1.4) mg/dL Estim Creat Clear Calc 110.8 Estimated GFR > 60 Random Glucose 103 (60-115) mg/dL Calcium 9.2 (8.4-10.2) mg/dL Total Bilirubin 1.2 H (0.0-1.0) mg/dL AST 22 (5-31) U/L ALT 21 (0-31) U/L Alkaline Phosphatase 45 (39-117) U/L Total Protein 7.8 (6.5-8.0) g/dL Albumin 4.8 (3.5-5.0) g/dL Beta HCG, Quant < 2 mIU/mL Urine Color Dark Yellow Urine Appearance Cloudy Urine pH 6.5 (5.0-9.0) Ur Specific [place] 1.025 (1.005-1.025) Urine Protein Negative (Neg-Trace) mg/dL Urine Glucose (UA) Negative (Negative) mg/dL Urine Ketones Trace (Negative) mg/dL Urine Blood Negative (Negative) Urine Nitrite Negative (Negative) Ur Leukocyte Esterase Trace H (Negative) Urine RBC 3-5 H (0-2) /HPF Urine WBC 0-5 (0-5) /HPF Ur Squamous Epith Cells >20 (0-2) /HPF Urine Bacteria 4+ (None Seen) Hyaline Casts 0-2 (0-2) /LPF Urine Opiates Screen Not Detected (Not Detect) Ur Buprenorphine Scrn Not Detected (Not Detect) ng/mL Ur Oxycodone Screen Not Detected (Not Detect) ng/mL Urine Methadone Screen Not Detected (Not Detect) ng/mL Urine Fentanyl Screen Not Detected (Not Detect) Ur Barbiturates Screen Not Detected (Not Detect) Ur Phencyclidine Scrn Not Detected (Not Detect) Ur Amphetamines Screen Not Detected (Not Detect) U Benzodiazepines Scrn Not Detected (Not Detect) Urine Cocaine Screen Not Detected (Not Detect) U Marijuana (THC) Screen POSITIVE H (Not Detect) Ethyl Alcohol < 10 mg/dL Independent Historian Clinical information obtained from an independent historian. History obtained from or confirmed by: Parent (patient's mother provided additional history and confirmed the history provided by the patient. ) Discharge Plan Discharge Clinical Impression: Suicidal ideation Bipolar disorder Qualifiers: Active/Remission status: remission status unspecified Qualified Code(s): F31.9 - Bipolar disorder, unspecified Prescriptions: No Action nicotine (polacrilex) 4 mg gum 4 mg buccal Q2H PRN (Reason: nicotine cravings) 30 Days Qty: 100 0RF hydroxyzine HCl 25 mg Tablet 25 mg PO Q6H PRN (Reason: mild anxiety) 30 Days Qty: 90 0RF ondansetron 4 mg tablet,disintegrating 4 mg PO Q6H PRN (Reason: nausea and vomiting) Qty: 10 0RF Interventions: [facility]-Suicide Risk Severity Scale Last Done: 02/18/25 16:04 Print Language: Tamazight
[2025-02-18 15:26] LABS: MANUAL DIFF FLAG NO
[2025-02-18 15:28] LABS: Hematocrit 44.5 % (37.0-47.0); Hemoglobin 14.7 g/dl (12.0-16.0); Imm Gran Abs Auto 0.02 X10*3/uL (0.00-0.03); Imm Gran Pct Auto 0.2 % (0.0-0.4); Lymphocytes Absolute Auto 2.1 X10*3/uL (1.2-4.9); Mean Corpuscular HGB Conc 33.0 g/dl (31.0-35.0); Mean Corpuscular Hemoglobin 31.4 pg (27.0-33.0); Mean Corpuscular Volume 95.1 fL (80.0-98.0); NRBC Abs Auto 0.000 X10*3/uL (0.0-0.012); NRBC Pct Auto 0.0 /100WBC (0.0-0.2); Platelet Count 320 X10*3/uL (160-400); Red Blood Count 4.68 X10*6/uL (4.20-5.50); White Blood Count 8.1 X10*3/uL (4.8-10.8)
[2025-02-18 15:28] LABS: Appearance Urine Cloudy; Glucose Urine UA Negative (Negative); PH 6.5 (5.0-9.0); Specific Gravity - Urine 1.025 (1.005-1.025); UMIC TRIGGER UACC YES
[2025-02-18 15:37] LABS: Cannabinoid Screen Urine POSITIVE (Not Detect)
[2025-02-18 15:48] LABS: Alanine Aminotransferase 21 U/L (0-31); Albumin Level 4.8 g/dL (3.5-5.0); Alkaline Phosphatase 45 U/L (39-117); Anion Gap 12 (12-20); Aspartate Amino Transferase 22 U/L (5-31); Blood Urea Nitrogen 17 mg/dL (9-16); Calcium 9.2 mg/dL (8.4-10.2); Carbon Dioxide 26 mmol/L (22-29); Chloride 108 mmol/L (96-108); Creatinine Clr Calc Pharmacy 110.8; Estimated Glomerular Filt Rate > 60; Potassium 3.8 mmol/L (3.3-5.1); Sodium 142 mmol/L (135-145); Total Protein 7.8 g/dL (6.5-8.0)
--- NOTE | 2025-02-18 16:16 | PC.NURSE ---
pt alert and oriented, skin appropriate for ethnicity, respirations even and unlabored, pt is reporting suicidal thoughts but no plan at this time, also states feeling depressed and having hx of anxiety-but states she is not anxious at this time does take hydroxyzine at home for her anxiety, pt is all over with her emotions one minute crying then the next laughing and smiling
--- NOTE | 2025-02-18 18:05 | PC.NURSE ---
called pharmacy for a med/rec
--- NOTE | 2025-02-19 | ECG_ITS ---
Test Reason : r/o qtc prolongnation Blood Pressure : */* mmHG Vent. Rate : 75 BPM Atrial Rate : 75 BPM P-R Int : 88 ms QRS Dur : 78 ms QT Int : 378 ms P-R-T Axes : 51 69 36 degrees QTcB Int : 422 ms Sinus rhythm with marked sinus arrhythmia with short NJ Otherwise normal ECG When compared with ECG of 23-Jun-2019 12:06, NJ interval has decreased Referred By: Oumou Mullins Electronically Signed By: Daren Bryant
--- NOTE | 2025-02-19 05:02 | PC.NURSE ---
Presents as calm and cooperative. Observed socializing with select peer and utilizing POD phone. Requested PRN Nicotine gum. Denies pain/discomfort. Endorses passive SI, no plan/intent. Denies HI/AVH. Contracts for safety. 15 minute safety checks ongoing. Plan of care ongoing.
--- NOTE | 2025-02-19 07:57 | PC.NURSE ---
Assumed care, report received. Pt is currently sleeping, breakfast is provided.
[2025-02-19 08:22] VITALS: BP 108/72; PULSE 77; TEMP 36.8; O2SAT 100
--- NOTE | 2025-02-19 11:10 | PHA.MEDREC ---
Addendum entered by Constance Daniel RPh 02/19/25 11:42: REVIEWED BY PHARMACIST Original Note: Pharmacy Consult ? Medication Reconciliation Pharmacy reviewed med rec done by nursing. No Known Home Meds confirmed and claims matches.
[2025-02-19 14:10] VITALS: BP 145/94; PULSE 86; RESP 16; TEMP 36.9; O2SAT 99
[2025-02-19 15:53] VITALS: BMI 24.0
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
[2025-02-19 20:00] VITALS: BP 117/72; PULSE 78; RESP 18; TEMP 36.9; O2SAT 99
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
[2025-02-20 08:00] VITALS: BP 92/58; PULSE 78; RESP 16; TEMP 36.5; O2SAT 100
--- NOTE | 2025-02-20 08:13 | HO.PM.IMCN ---
History of Present Illness Data of Consult Service Date: 02/20/25 Primary Care Provider: Unknown Physician HPI Reason for consult: Medical consult 24-year-old female with a past medical history of bipolar disorder and PTSD presented to the emergency department with suicide ideation and medication noncompliance. Workup revealed no leukocytosis or anemia, no electrolyte imbalances, no evidence of renal or kidney injury, urinalysis without evidence of infection. U tox positive for marijuana. On exam she has no medical concerns. Review of Systems Review of Systems: Denies any shortness of breath, chest pain, headaches, dysuria, abdominal pain or discomfort, nausea, vomiting or diarrhea. Denies fever or chills. [facility] Medical History Depression PTSD (post-traumatic stress disorder) Bipolar disorder, unspecified Anxiety and depression Social History Household Members: Friend(s) Housing: Homeless Do you presently have visiting nurse or other home services: No Patient Tobacco Use Status: Current everyday Tobacco user Tobacco use type: Cigarette Smoked in Last 30 Days: Yes e-Cigarette/Vaping Use: Currently Using Patient Interested in Nicotine Replacement: Yes Substance Use Type: Marijuana Substance Use Frequency: Daily Currently Displaying Signs/Symptoms of Drug Intoxication Withdrawal: No Advance Directives: No Advance Directives Information Provided: Yes Do you have thoughts of harming others: None Do you have a plan to hurt others: No Plan Recently lost weight without trying: No Eating poorly because of decreased appetite: No Nutrition Risks: No Nutritional Risk Patient : No : No Poor oral hygiene: No service: No Sexual orientation: Questioning Meds Allergies Allergy/AdvReac Type Severity Reaction Status Date / Time haloperidol (From HALDOL) Allergy Severe DIFFICULTY Verified 02/18/25 14:40 BREATHING Sulfa (Sulfonamide Allergy Mild HIVES Verified 02/18/25 14:40 Antibiotics) (SULFA (SULFONAMIDE ANTIBIOTICS)) Active Medications: Current Medications Acetaminophen (Acetaminophen 325 Mg Tablet) 650 mg PO Q6H PRN PRN Reason: Headache/Pain, Scale 1-10 Al Hydroxide/Mg Hydroxide (Magnesium Hydrox/Alum Hydrox 30 Ml Oral.Susp) 30 ml PO Q6H PRN PRN Reason: Heartburn/Nausea Hydroxyzine HCl (Hydroxyzine Hcl 25 Mg Tablet) 25 mg PO RQ6H PRN PRN Reason: Anxiety Magnesium Hydroxide (Milk Of Magnesia 30 Ml Oral.Susp) 30 ml PO DAILY PRN PRN Reason: Constipation Nicotine (Nicotine 21 Mg Patch.Td24) 21 mg TRANSDERMA DAILY PRN PRN Reason: nicotine craving Nicotine Polacrilex (Nicotine Polacrilex 2 Mg Gum) 4 mg BUCCAL Q2H PRN PRN Reason: Nicotine Cravings Last Admin: 02/19/25 19:48 Dose: 4 mg Olanzapine (Olanzapine 5 Mg Tablet) 5 mg PO Q4H PRN PRN Reason: agitation Last Admin: 02/19/25 19:47 Dose: 5 mg Oxcarbazepine (Oxcarbazepine 150 Mg Tablet) 150 mg PO BID AAKASH Last Admin: 02/19/25 23:48 Dose: 150 mg Trazodone HCl (Trazodone Hcl 50 Mg Tablet) 50 mg PO BEDTIME MRX1 PRN PRN Reason: Insomnia Home Medications ?Medication ?Instructions ?Recorded ?Confirmed ?Last Taken ?Type No Known Home Meds 02/19/25 02/19/25 Unknown History Physical Exam Vital Signs and Narrative: Vital Signs: Last Vital Signs Temp 98.4 F 02/19/25 20:00 Pulse 78 02/19/25 20:00 Resp 18 02/19/25 20:00 BP 117/72 02/19/25 20:00 Pulse Ox 99 02/19/25 20:00 O2 Del Method Room Air 02/19/25 20:00 BMI result Body Mass Index 24.0 Alert and oriented X3, pleasant and cooperative. Answers questions. Neuro: CN II-X11 intact, no deficits, visual acuity intact EYES: PERRLA, EOM intact ENT: Hearing intact, MMM Cardiac: S1 S2 RRR, No ectopy Pulmonary: lungs clear to auscultation, No increased WOB. Abdominal: BS active in all 4 quadrants, no guarding or tenderness MSK: Strength 5/5 upper and lower extremities : Deferred Extremities: No edema in lower extremities Psych: Mood stable, Quiet and cooperative. Skin: Warm and dry, Intact Results Labs 02/18/25 15:21 02/18/25 15:21 Assessment and Plan (1) Suicidal ideation: Status: Acute Plan 24-year-old female with a past medical history listed below presented to the emergency room with suicide ideation and noncompliance with medication. Bipolar disorder/PTSD/suicidal ideation Treatment per psychiatric team Thank you for allowing me to participate in the care of this patient. Will follow with you, please notify medical provider with any changes in condition or concerns.
--- NOTE | 2025-02-20 09:58 | HO.PSYCHPN ---
Subjective Subjective Date of Service: 02/20/25 Reason For Visit: PTSD Bipoar disorder Interim History: met with patient; discussed with team Patient shared about events over the past months leading to this admission. Like last admission, underwriter mortgage loan and patient trying to discern whether or not patient is dysregulated behaviors are due to a combination of trauma and ADHD or if there due to a bipolar disorder and represent discrete manic episodes. Patient shared about her struggles dealing with trauma how confused she feels at times. Patient described her liaisons with other men saying they seem to be triggered by feeling neglected by her current boyfriend, prompting feelings of loneliness; she also says she is drawn to older men. Each of these liaisons was done in secret and patient made attempts to hide it from her partner. The way patient describes it it seems more like trauma induced dysregulation and much less a manic episode; patient his balance and around while talking but this to remains possibly explained by ADHD and patient is able to sit quietly and talk and listen. Discussed medication options, risks/side effects and patient is comfortable with trying Effexor and Intuniv. Patient understands that if she does have bipolar disorder that Effexor could trigger a manic episode but agrees it is currently worth the risk to avoid getting on a mood stabilizer unnecessarily. Mental Status Exam Mental Status Exam Narrative: Pt is alert and oriented; behavior is hyperactive at times, sometimes expressing herself with exuberance; intermittently emotionally dysregulated but also able to be calm; cooperative, friendly; patient is not in distress; dressed in casual attire with unkempt hair but adequate hygiene; mood is described as upset and affect congruent, tearful; eye contact appropriate; Speech is a little pressured and verbose; saw psychomotor agitation present; thought process is organized and goal directed; Thought content is on her behaviors; otherwise pertinent to relevant topics and without any delusional content, paranoid ideations or grandiosity; sometimes passive wish but denies any active SI/no HI. Denies AVH and there is no evidence of perceptual disturbance. Patients insight and judgment impaired Diagnostics Vital Signs (24Hr): Vital Signs - 24 hr 02/19/25 14:10 02/19/25 20:00 Temperature 98.5 F 98.4 F Pulse Rate 86 78 Respiratory Rate 16 18 Blood Pressure 145/94 H 117/72 Pulse Oximetry 99 99 Oxygen Delivery Method Room Air Room Air BMI result Body Mass Index 24.0 Labs 02/18/25 15:21 02/18/25 15:21 Labs: Laboratory Results - last 48 hr 02/18/25 02/18/25 15:14 15:21 WBC 8.1 RBC 4.68 Hgb 14.7 Hct 44.5 MCV 95.1 MCH 31.4 MCHC 33.0 RDW 12.3 Plt Count 320 MPV 9.7 Immature Gran % (Auto) 0.2 Neut % (Auto) 66.7 Lymph % (Auto) 25.7 Duc[place]ne % (Auto) 5.7 Eos % (Auto) 1.0 Baso % (Auto) 0.7 Lymph # (Auto) 2.1 [place] # (Auto) 0.5 Eos # (Auto) 0.1 Baso # (Auto) 0.1 Abs Immat Gran (auto) 0.02 Absolute Neuts (auto) 5.4 Absolute Nucleated RBC 0.000 Nucleated RBC % (auto) 0.0 Sodium 142 Potassium 3.8 Chloride 108 Carbon Dioxide 26 Anion Gap 12 BUN 17 H Creatinine 0.67 Estim Creat Clear Calc 110.8 Estimated GFR > 60 Random Glucose 103 Calcium 9.2 Total Bilirubin 1.2 H AST 22 ALT 21 Alkaline Phosphatase 45 Total Protein 7.8 Albumin 4.8 Beta HCG, Quant < 2 Urine Color Dark Yellow Urine Appearance Cloudy Urine pH 6.5 Ur Specific Gustine 1.025 Urine Protein Negative Urine Glucose (UA) Negative Urine Ketones Trace Urine Blood Negative Urine Nitrite Negative Ur Leukocyte Esterase Trace H Urine RBC 3-5 H Urine WBC 0-5 Ur Squamous Epith Cells >20 Urine Bacteria 4+ Hyaline Casts 0-2 Urine Opiates Screen Not Detected Ur Buprenorphine Scrn Not Detected Ur Oxycodone Screen Not Detected Urine Methadone Screen Not Detected Urine Fentanyl Screen Not Detected Ur Barbiturates Screen Not Detected Ur Phencyclidine Scrn Not Detected Ur Amphetamines Screen Not Detected U Benzodiazepines Scrn Not Detected Urine Cocaine Screen Not Detected U Marijuana (THC) Screen POSITIVE H Ethyl Alcohol < 10 Medications Medications Current Medications Acetaminophen (Acetaminophen 325 Mg Tablet) 650 mg PO Q6H PRN PRN Reason: Headache/Pain, Scale 1-10 Al Hydroxide/Mg Hydroxide (Magnesium Hydrox/Alum Hydrox 30 Ml Oral.Susp) 30 ml PO Q6H PRN PRN Reason: Heartburn/Nausea Hydroxyzine HCl (Hydroxyzine Hcl 25 Mg Tablet) 25 mg PO RQ6H PRN PRN Reason: Anxiety Magnesium Hydroxide (Milk Of Magnesia 30 Ml Oral.Susp) 30 ml PO DAILY PRN PRN Reason: Constipation Nicotine (Nicotine 21 Mg Patch.Td24) 21 mg TRANSDERMA DAILY PRN PRN Reason: nicotine craving Nicotine Polacrilex (Nicotine Polacrilex 2 Mg Gum) 4 mg BUCCAL Q2H PRN PRN Reason: Nicotine Cravings Last Admin: 02/19/25 19:48 Dose: 4 mg Olanzapine (Olanzapine 5 Mg Tablet) 5 mg PO Q4H PRN PRN Reason: agitation Last Admin: 02/19/25 19:47 Dose: 5 mg Oxcarbazepine (Oxcarbazepine 150 Mg Tablet) 150 mg PO BID AAKASH Last Admin: 02/19/25 23:48 Dose: 150 mg Trazodone HCl (Trazodone Hcl 50 Mg Tablet) 50 mg PO BEDTIME MRX1 PRN PRN Reason: Insomnia Allergies Allergies Allergy/AdvReac Type Severity Reaction Status Date / Time haloperidol (From HALDOL) Allergy Severe DIFFICULTY Verified 02/18/25 14:40 BREATHING Sulfa (Sulfonamide Allergy Mild HIVES Verified 02/18/25 14:40 Antibiotics) (SULFA (SULFONAMIDE ANTIBIOTICS)) Assessment & Plan Assessment & Plan (1) Bipolar disorder, unspecified: Status: Suspected Code(s): F31.9 - Bipolar disorder, unspecified (2) PTSD (post-traumatic stress disorder): Status: Acute Code(s): F43.10 - Post-traumatic stress disorder, unspecified (3) Suicidal ideation: Status: Acute Code(s): R45.851 - Suicidal ideations (4) Tetrahydrocannabinol (THC) use disorder, moderate, dependence: Status: Acute Code(s): F12.20 - Cannabis dependence, uncomplicated Plan HPI: Patient is a 24 y.o single Green[place]ic speaking with PTSD and possible Bipolar who presented to [facility] ED via EMS that she contacted for herself. Upon arrival patient reported increased suicidal ideation with fleeting thoughts and stated: I don' t care if I am or alive at this point and I have tried in the past . She reported that her previous admission to was beneficial however, she was not agreeable to take medications as she was previously doing well without any and indicated that the prescriber encouraged her to take medications however, allowed for her to discharge without any. Pt stated: I really thought I could do it without medications, but the doctor told me I was manic and I should have listened. I came back before things got really bad, I know I need help . Formulation/clinical reasoning: increasing in stress, increasing in anxiety and manic behaviors with passive SI, not accept medication from previous admission, not having OP prescriber. Currently not on meds. Not able to follow through appointment with OP therapist as the therapist was not able to meet her request- meeting once weekly instead of twice monthly. hx of PTSD, and possible Bipolar. Given the above information, patient would benefit from restrictive environment, medication management, and refer patient to outpatient psychiatric services for aftercare. Hospital course: 02/19/25: start on Trileptal 150mg BID for mood. Plan to titrate up to therapeutic dose targeting hypomanic behaviors. Monitor for Sodium level. Currently WNL. Zyprexa 5mg BID PRN for agitation/severe anxiety. 02/20 Patient shared about events over the past months leading to this admission. Like last admission, underwriter mortgage loan and patient trying to discern whether or not patient is dysregulated behaviors are due to a combination of trauma and ADHD or if there due to a bipolar disorder and represent discrete manic episodes. Patient shared about her struggles dealing with trauma how confused she feels at times. At last admission, underwriter mortgage loan remained unsure diagnosis. Currently, Lean towards trauma/ADHD (vs bipolar): Patient described her liaisons with other men saying they seem to be triggered when feeling neglected by her current boyfriend, prompting feelings of loneliness; she also says she is drawn to older men and says she thinks she has daddy issues. Each of these liaisons was done in secret and patient made attempts to hide it from her partner. Looking at the specific pattern and conscious choices made, patient's liaison/dysregulated moments seems more like trauma induced dysregulation and much less a manic episode; patient denies sleeplessness. While talking with underwriter mortgage loan, patient is bouncing around the room while talking, but she is talking about highly emotional topics and it remains quite possibly explained by ADHD and patient is able to sit quietly and talk and listen. Discussed medication options, risks/side effects and patient is comfortable with trying Effexor and Intuniv. Patient understands that if she does have bipolar disorder that Effexor could trigger a manic episode but agrees it is currently worth the risk to avoid getting on a mood stabilizer unnecessarily. -will monitor for signs of staci BUT will keep in mind that ADHD/trauma can look very much like staci. Plan CV Q 15 minute checks Start venlafaxine 37.5 mg; stay on for 2 days and then titrate to 75 mg Start Intuniv ER 1 mg daily for ADHD and anxiety DC Trileptal; patient does not want right now Patient educated on: diagnosis, medication risk/benefits and therapeutic strategies Informed Consent: understands and further education needed Reason for continued inpatient stay Substantial Risk for: rapid decompensation Time Spent With Patient Time: Total time managing care of this patient today ____ minutes.
[2025-02-20] MEDS: Venlafaxine HCl ER 37.5 MG CAP.ER.24H PO (16:35)
[2025-02-20] MEDS: guanFACINE HCl ER 1 MG TAB.ER.24H PO (16:35)
[2025-02-20 20:00] VITALS: BP 120/63; PULSE 69; RESP 15; TEMP 37; O2SAT 100
--- NOTE | 2025-02-21 07:03 | P.PNPSI_ITS ---
Subjective Subjective Date of Service: 02/21/25 Reason For Visit: PTSD Bipoar disorder Interim History: met with patient. Discussed with Nursing. Noted meeting yesterday and thoughtful discussion and evaluation around medication management and rationale for Effexor. Today patient reports that mood is settling a little bit more, and able to distract self when angry or upset, which did happen earlier on the day when on the telephone with her boyfriend, where she was yelling and slamming the telephone. This was due to content of conversation they were having and feeling upset by that. Sleep has been better compared to home- slept at approx 2am but woke at 10am- at home often bed later than 2am . Depression is less compared to admission. No thoughts of . No med side effects. Reflected on conversation with provider yesterday and does feel that a lot of her emotions and symptoms are related to PTSD and ADHD rather than discrete hypomanic episodes. Hopeful that medications and regular therapy will be helpful after discharge. Review of Systems Review of Systems Nothing acute Mental Status Exam Mental Status Exam Narrative: pleasant and engaged with database report writer. Was upset on telephone with boyfriend earlier in the day, but settled quickly thereafter. Casually dressed and presented. Good self-care. My anxiety evident. Less depressed. No SI or thoughts of . No HI. No psychosis. Insight and judgment fair Diagnostics Vital Signs (24Hr): Vital Signs - 24 hr 02/20/25 08:00 02/20/25 20:00 Temperature 97.7 F 98.6 F Pulse Rate 78 69 Respiratory Rate 16 15 Blood Pressure 92/58 L 120/63 Pulse Oximetry 100 100 Oxygen Delivery Method Room Air BMI result Body Mass Index 24.0 Labs 02/18/25 15:21 02/18/25 15:21 Medications Medications Current Medications Acetaminophen (Acetaminophen 325 Mg Tablet) 650 mg PO Q6H PRN PRN Reason: Headache/Pain, Scale 1-10 Al Hydroxide/Mg Hydroxide (Magnesium Hydrox/Alum Hydrox 30 Ml Oral.Susp) 30 ml PO Q6H PRN PRN Reason: Heartburn/Nausea Guanfacine HCl (Guanfacine Hcl Er 1 Mg Tab.Er.24h) 1 mg PO DAILY AAKASH Last Admin: 02/20/25 16:35 Dose: 1 mg Hydroxyzine HCl (Hydroxyzine Hcl 25 Mg Tablet) 25 mg PO RQ6H PRN PRN Reason: Anxiety Magnesium Hydroxide (Milk Of Magnesia 30 Ml Oral.Susp) 30 ml PO DAILY PRN PRN Reason: Constipation Nicotine (Nicotine 21 Mg Patch.Td24) 21 mg TRANSDERMA DAILY PRN PRN Reason: nicotine craving Nicotine Polacrilex (Nicotine Polacrilex 2 Mg Gum) 4 mg BUCCAL Q2H PRN PRN Reason: Nicotine Cravings Last Admin: 02/20/25 21:54 Dose: 4 mg Olanzapine (Olanzapine 5 Mg Tablet) 5 mg PO Q4H PRN PRN Reason: agitation Last Admin: 02/19/25 19:47 Dose: 5 mg Trazodone HCl (Trazodone Hcl 50 Mg Tablet) 50 mg PO BEDTIME MRX1 PRN PRN Reason: Insomnia Venlafaxine HCl (Venlafaxine Hcl Er 75 Mg Cap.Er.24h) 75 mg PO DAILY AAKASH Venlafaxine HCl (Venlafaxine Hcl Er 37.5 Mg Cap.Er.24h) 37.5 mg PO DAILY AAKASH Stop: 02/21/25 23:00 Allergies Allergies Allergy/AdvReac Type Severity Reaction Status Date / Time haloperidol (From HALDOL) Allergy Severe DIFFICULTY Verified 02/18/25 14:40 BREATHING Sulfa (Sulfonamide Allergy Mild HIVES Verified 02/18/25 14:40 Antibiotics) (SULFA (SULFONAMIDE ANTIBIOTICS)) Assessment & Plan Assessment & Plan (1) Bipolar disorder, unspecified: Status: Suspected Code(s): F31.9 - Bipolar disorder, unspecified (2) PTSD (post-traumatic stress disorder): Status: Acute Code(s): F43.10 - Post-traumatic stress disorder, unspecified (3) Suicidal ideation: Status: Acute Code(s): R45.851 - Suicidal ideations (4) Tetrahydrocannabinol (THC) use disorder, moderate, dependence: Status: Acute Code(s): F12.20 - Cannabis dependence, uncomplicated Plan HPI: Patient is a 24 y.o single [place] speaking with PTSD and possible Bipolar who presented to [facility] ED via EMS that she contacted for herself. Upon arrival patient reported increased suicidal ideation with fleeting thoughts and stated: I don' t care if I am or alive at this point and I have tried in the past . She reported that her previous admission to was beneficial however, she was not agreeable to take medications as she was previously doing well without any and indicated that the prescriber encouraged her to take medications however, allowed for her to discharge without any. Pt stated: I really thought I could do it without medications, but the doctor told me I was manic and I should have listened. I came back before things got really bad, I know I need help . Formulation/clinical reasoning: increasing in stress, increasing in anxiety and manic behaviors with passive SI, not accept medication from previous admission, not having OP prescriber. Currently not on meds. Not able to follow through appointment with OP therapist as the therapist was not able to meet her request- meeting once weekly instead of twice monthly. hx of PTSD, and possible Bipolar. Given the above information, patient would benefit from restrictive environment, medication management, and refer patient to outpatient psychiatric services for aftercare. Hospital course: 02/19/25: start on Trileptal 150mg BID for mood. Plan to titrate up to therapeutic dose targeting hypomanic behaviors. Monitor for Sodium level. Currently WNL. Zyprexa 5mg BID PRN for agitation/severe anxiety. 02/20 Patient shared about events over the past months leading to this admission. Like last admission, database report writer and patient trying to discern whether or not patient is dysregulated behaviors are due to a combination of trauma and ADHD or if there due to a bipolar disorder and represent discrete manic episodes. Patient shared about her struggles dealing with trauma how confused she feels at times. At last admission, database report writer remained unsure diagnosis. Currently, Lean towards trauma/ADHD (vs bipolar): Patient described her liaisons with other men saying they seem to be triggered when feeling neglected by her current boyfriend, prompting feelings of loneliness; she also says she is drawn to older men and says she thinks she has daddy issues. Each of these liaisons was done in secret and patient made attempts to hide it from her partner. Looking at the specific pattern and conscious choices made, patient's liaison/dysregulated moments seems more like trauma induced dysregulation and much less a manic episode; patient denies sleeplessness. While talking with database report writer, patient is bouncing around the room while talking, but she is talking about highly emotional topics and it remains quite possibly explained by ADHD and patient is able to sit quietly and talk and listen. Discussed medication options, risks/side effects and patient is comfortable with trying Effexor and Intuniv. Patient understands that if she does have bipolar disorder that Effexor could trigger a manic episode but agrees it is currently worth the risk to avoid getting on a mood stabilizer unnecessarily. -will monitor for signs of staci BUT will keep in mind that ADHD/trauma can look very much like staci. 02/21: no changes. tolerating effexor well Plan CV Q 15 minute checks Start venlafaxine 37.5 mg; stay on for 2 days and then titrate to 75 mg Start Intuniv ER 1 mg daily for ADHD and anxiety DC Trileptal; patient does not want right now Reason for continued inpatient stay Substantial Risk for: rapid decompensation Time Spent With Patient Time: Total time managing care of this patient today ____ minutes.
[2025-02-21 08:00] VITALS: BP 107/54; PULSE 57; RESP 18; TEMP 36.8; O2SAT 100
[2025-02-21] MEDS: guanFACINE HCl ER 1 MG TAB.ER.24H PO (08:47)
[2025-02-21] MEDS: Venlafaxine HCl ER 37.5 MG CAP.ER.24H PO (08:47)
[2025-02-21 20:00] VITALS: BP 110/60; PULSE 88; RESP 18; TEMP 36.8; O2SAT 100
[2025-02-22 08:00] VITALS: PULSE 71; RESP 18; TEMP 36.8; O2SAT 100
--- NOTE | 2025-02-22 08:01 | HO.PSYCHPN ---
Subjective Subjective Date of Service: 02/22/25 Reason For Visit: PTSD Bipoar disorder Interim History: Met with patient. Discussed with Nursing. Today patient reports that mood is settling a little bit more, upset ref rapid response earlier for toom mate and milieu afterwards and staff interaction. Is able to reflect upon same and has processed this with multiple other staff today and feels supported. Able to distract self when angry or upset. Sleep was very good last night. Depression is less compared to admission. No thoughts of . No med side effects. Wants to discuss with primary team space guanfacine versus stimulants for ADHD Medication Compliance: Yes Side effects from medications: No Attending Groups: Yes Review of Systems Acute medical concerns: No Review of Systems Review of Systems Nothing acute Mental Status Exam Mental Status Exam Narrative: pleasant and engaged with automobile and property underwriter. Casually dressed and presented. Good self-care. Less anxiety.. Less depressed. No SI or thoughts of . No HI. No psychosis. Insight and judgment fair Diagnostics Vital Signs (24Hr): Vital Signs - 24 hr 02/21/25 20:00 Temperature 98.3 F Pulse Rate 88 Respiratory Rate 18 Blood Pressure 110/60 Pulse Oximetry 100 Oxygen Delivery Method Room Air BMI result Body Mass Index 24.0 Labs 02/18/25 15:21 02/18/25 15:21 Medications Medications Current Medications Acetaminophen (Acetaminophen 325 Mg Tablet) 650 mg PO Q6H PRN PRN Reason: Headache/Pain, Scale 1-10 Last Admin: 02/21/25 23:06 Dose: 650 mg Al Hydroxide/Mg Hydroxide (Magnesium Hydrox/Alum Hydrox 30 Ml Oral.Susp) 30 ml PO Q6H PRN PRN Reason: Heartburn/Nausea Guanfacine HCl (Guanfacine Hcl Er 1 Mg Tab.Er.24h) 1 mg PO DAILY AAKASH Last Admin: 02/21/25 08:47 Dose: 1 mg Hydroxyzine HCl (Hydroxyzine Hcl 25 Mg Tablet) 25 mg PO RQ6H PRN PRN Reason: Anxiety Last Admin: 02/21/25 16:09 Dose: 25 mg Magnesium Hydroxide (Milk Of Magnesia 30 Ml Oral.Susp) 30 ml PO DAILY PRN PRN Reason: Constipation Nicotine (Nicotine 21 Mg Patch.Td24) 21 mg TRANSDERMA DAILY PRN PRN Reason: nicotine craving Nicotine Polacrilex (Nicotine Polacrilex 2 Mg Gum) 4 mg BUCCAL Q2H PRN PRN Reason: Nicotine Cravings Last Admin: 02/21/25 19:35 Dose: 4 mg Olanzapine (Olanzapine 5 Mg Tablet) 5 mg PO Q4H PRN PRN Reason: agitation Last Admin: 02/19/25 19:47 Dose: 5 mg Trazodone HCl (Trazodone Hcl 50 Mg Tablet) 50 mg PO BEDTIME MRX1 PRN PRN Reason: Insomnia Venlafaxine HCl (Venlafaxine Hcl Er 75 Mg Cap.Er.24h) 75 mg PO DAILY AAKASH Allergies Allergies Allergy/AdvReac Type Severity Reaction Status Date / Time haloperidol (From HALDOL) Allergy Severe DIFFICULTY Verified 02/18/25 14:40 BREATHING Sulfa (Sulfonamide Allergy Mild HIVES Verified 02/18/25 14:40 Antibiotics) (SULFA (SULFONAMIDE ANTIBIOTICS)) Assessment & Plan Assessment & Plan (1) Bipolar disorder, unspecified: Status: Suspected Code(s): F31.9 - Bipolar disorder, unspecified (2) PTSD (post-traumatic stress disorder): Status: Acute Code(s): F43.10 - Post-traumatic stress disorder, unspecified (3) Suicidal ideation: Status: Acute Code(s): R45.851 - Suicidal ideations (4) Tetrahydrocannabinol (THC) use disorder, moderate, dependence: Status: Acute Code(s): F12.20 - Cannabis dependence, uncomplicated Plan HPI: Patient is a 24 y.o single French speaking with PTSD and possible Bipolar who presented to [facility] [place] [place] ED via EMS that she contacted for herself. Upon arrival patient reported increased suicidal ideation with fleeting thoughts and stated: I don' t care if I am or alive at this point and I have tried in the past . She reported that her previous admission to was beneficial however, she was not agreeable to take medications as she was previously doing well without any and indicated that the prescriber encouraged her to take medications however, allowed for her to discharge without any. Pt stated: I really thought I could do it without medications, but the doctor told me I was manic and I should have listened. I came back before things got really bad, I know I need help . Formulation/clinical reasoning: increasing in stress, increasing in anxiety and manic behaviors with passive SI, not accept medication from previous admission, not having OP prescriber. Currently not on meds. Not able to follow through appointment with OP therapist as the therapist was not able to meet her request- meeting once weekly instead of twice monthly. hx of PTSD, and possible Bipolar. Given the above information, patient would benefit from restrictive environment, medication management, and refer patient to outpatient psychiatric services for aftercare. Hospital course: 02/19/25: start on Trileptal 150mg BID for mood. Plan to titrate up to therapeutic dose targeting hypomanic behaviors. Monitor for Sodium level. Currently WNL. Zyprexa 5mg BID PRN for agitation/severe anxiety. 02/20 Patient shared about events over the past months leading to this admission. Like last admission, automobile and property underwriter and patient trying to discern whether or not patient is dysregulated behaviors are due to a combination of trauma and ADHD or if there due to a bipolar disorder and represent discrete manic episodes. Patient shared about her struggles dealing with trauma how confused she feels at times. At last admission, automobile and property underwriter remained unsure diagnosis. Currently, Lean towards trauma/ADHD (vs bipolar): Patient described her liaisons with other men saying they seem to be triggered when feeling neglected by her current boyfriend, prompting feelings of loneliness; she also says she is drawn to older men and says she thinks she has daddy issues. Each of these liaisons was done in secret and patient made attempts to hide it from her partner. Looking at the specific pattern and conscious choices made, patient's liaison/dysregulated moments seems more like trauma induced dysregulation and much less a manic episode; patient denies sleeplessness. While talking with automobile and property underwriter, patient is bouncing around the room while talking, but she is talking about highly emotional topics and it remains quite possibly explained by ADHD and patient is able to sit quietly and talk and listen. Discussed medication options, risks/side effects and patient is comfortable with trying Effexor and Intuniv. Patient understands that if she does have bipolar disorder that Effexor could trigger a manic episode but agrees it is currently worth the risk to avoid getting on a mood stabilizer unnecessarily. -will monitor for signs of staci BUT will keep in mind that ADHD/trauma can look very much like staci. 02/21: no changes. tolerating effexor well 02/22: no changes. Wants to discuss with primary team space guanfacine versus stimulants for ADHD Plan CV Q 15 minute checks Start venlafaxine 37.5 mg; stay on for 2 days and then titrate to 75 mg Start Intuniv ER 1 mg daily for ADHD and anxiety DC Trileptal; patient does not want right now Reason for continued inpatient stay Substantial Risk for: rapid decompensation Time Spent With Patient Time: Total time managing care of this patient today ____ minutes.
[2025-02-22] MEDS: guanFACINE HCl ER 1 MG TAB.ER.24H PO (09:05)
[2025-02-22] MEDS: Venlafaxine HCl ER 75 MG CAP.ER.24H PO (09:05)
[2025-02-22 19:55] VITALS: BP 150/59; PULSE 79; RESP 15; TEMP 36.6; O2SAT 100
[2025-02-23 08:00] VITALS: BP 101/58; PULSE 71; RESP 16; TEMP 36.8; O2SAT 71
[2025-02-23] MEDS: Venlafaxine HCl ER 75 MG CAP.ER.24H PO (08:54)
[2025-02-23] MEDS: guanFACINE HCl ER 1 MG TAB.ER.24H PO (08:54)
--- NOTE | 2025-02-23 09:58 | P.PNPSI_ITS ---
Subjective Subjective Date of Service: 02/23/25 Reason For Visit: PTSD Bipoar disorder Interim History: met with pt; discussed with team; reviewed chart Patient reports that overall she is feeling better, less depressed, more hopeful; still anxious. Discussed her efforts on coping with her emotions she feels she is much improved. Good conversations with her partner Cam. Discussed medications and diagnosis and jingle writer continues with diagnosis of PTSD/ADHD. Intuniv not doing anything for ADHD symptoms and though it low-dose, would like to try patient on Adderall; reviewed risks/side effects including triggering manic episode and patient agrees Mental Status Exam Mental Status Exam Narrative: Pt is alert and oriented; behavior is hyperactive at times; intermittently emotionally dysregulated but also able to be calm; cooperative, friendly; patient is not in distress; dressed in casual attire with unkempt hair but adequate hygiene; mood is described good and affect overall congruent, though remains emotionally reactive; eye contact appropriate; Speech is a little verbose not pressured; no psychomotor agitation present; thought process is organized and goal directed; Thought content is on her behaviors, her relationship, treatment; otherwise pertinent to relevant topics and without any delusional content, paranoid ideations or grandiosity; no SI/no HI. Denies AVH and there is no evidence of perceptual disturbance. Patients insight and judgment fair Diagnostics Vital Signs (24Hr): Vital Signs - 24 hr 02/22/25 19:55 02/23/25 08:00 Temperature 97.9 F 98.2 F Pulse Rate 79 71 Respiratory Rate 15 16 Blood Pressure 150/59 H 101/58 L Pulse Oximetry 100 71 L Oxygen Delivery Method Room Air BMI result Body Mass Index 24.0 Labs 02/18/25 15:21 02/18/25 15:21 Medications Medications Current Medications Acetaminophen (Acetaminophen 325 Mg Tablet) 650 mg PO Q6H PRN PRN Reason: Headache/Pain, Scale 1-10 Last Admin: 02/21/25 23:06 Dose: 650 mg Al Hydroxide/Mg Hydroxide (Magnesium Hydrox/Alum Hydrox 30 Ml Oral.Susp) 30 ml PO Q6H PRN PRN Reason: Heartburn/Nausea Guanfacine HCl (Guanfacine Hcl Er 1 Mg Tab.Er.24h) 1 mg PO DAILY AAKASH Last Admin: 02/23/25 08:54 Dose: 1 mg Hydroxyzine HCl (Hydroxyzine Hcl 25 Mg Tablet) 25 mg PO RQ6H PRN PRN Reason: Anxiety Last Admin: 02/21/25 16:09 Dose: 25 mg Magnesium Hydroxide (Milk Of Magnesia 30 Ml Oral.Susp) 30 ml PO DAILY PRN PRN Reason: Constipation Nicotine (Nicotine 21 Mg Patch.Td24) 21 mg TRANSDERMA DAILY PRN PRN Reason: nicotine craving Nicotine Polacrilex (Nicotine Polacrilex 2 Mg Gum) 4 mg BUCCAL Q2H PRN PRN Reason: Nicotine Cravings Last Admin: 02/22/25 23:24 Dose: 4 mg Olanzapine (Olanzapine 5 Mg Tablet) 5 mg PO Q4H PRN PRN Reason: agitation Last Admin: 02/19/25 19:47 Dose: 5 mg Trazodone HCl (Trazodone Hcl 50 Mg Tablet) 50 mg PO BEDTIME MRX1 PRN PRN Reason: Insomnia Venlafaxine HCl (Venlafaxine Hcl Er 75 Mg Cap.Er.24h) 75 mg PO DAILY AAKASH Last Admin: 02/23/25 08:54 Dose: 75 mg Allergies Allergies Allergy/AdvReac Type Severity Reaction Status Date / Time haloperidol (From HALDOL) Allergy Severe DIFFICULTY Verified 02/18/25 14:40 BREATHING Sulfa (Sulfonamide Allergy Mild HIVES Verified 02/18/25 14:40 Antibiotics) (SULFA (SULFONAMIDE ANTIBIOTICS)) Assessment & Plan Assessment & Plan (1) Bipolar disorder, unspecified: Status: Suspected Code(s): F31.9 - Bipolar disorder, unspecified (2) PTSD (post-traumatic stress disorder): Status: Acute Code(s): F43.10 - Post-traumatic stress disorder, unspecified (3) Suicidal ideation: Status: Acute Code(s): R45.851 - Suicidal ideations (4) Tetrahydrocannabinol (THC) use disorder, moderate, dependence: Status: Acute Code(s): F12.20 - Cannabis dependence, uncomplicated Plan HPI: Patient is a 24 y.o single Tristanian speaking with PTSD and possible Bipolar who presented to [facility] [place] [place] ED via EMS that she contacted for herself. Upon arrival patient reported increased suicidal ideation with fleeting thoughts and stated: I don' t care if I am or alive at this point and I have tried in the past . She reported that her previous admission to was beneficial however, she was not agreeable to take medications as she was previously doing well without any and indicated that the prescriber encouraged her to take medications however, allowed for her to discharge without any. Pt stated: I really thought I could do it without medications, but the doctor told me I was manic and I should have listened. I came back before things got really bad, I know I need help . Formulation/clinical reasoning: increasing in stress, increasing in anxiety and manic behaviors with passive SI, not accept medication from previous admission, not having OP prescriber. Currently not on meds. Not able to follow through appointment with OP therapist as the therapist was not able to meet her request- meeting once weekly instead of twice monthly. hx of PTSD, and possible Bipolar. Given the above information, patient would benefit from restrictive environment, medication management, and refer patient to outpatient psychiatric services for aftercare. Hospital course: 02/19/25: start on Trileptal 150mg BID for mood. Plan to titrate up to therapeutic dose targeting hypomanic behaviors. Monitor for Sodium level. Currently WNL. Zyprexa 5mg BID PRN for agitation/severe anxiety. 02/20 Patient shared about events over the past months leading to this admission. Like last admission, jingle writer and patient trying to discern whether or not patient is dysregulated behaviors are due to a combination of trauma and ADHD or if there due to a bipolar disorder and represent discrete manic episodes. Patient shared about her struggles dealing with trauma how confused she feels at times. At last admission, jingle writer remained unsure diagnosis. Currently, Lean towards trauma/ADHD (vs bipolar): Patient described her liaisons with other men saying they seem to be triggered when feeling neglected by her current boyfriend, prompting feelings of loneliness; she also says she is drawn to older men and says she thinks she has daddy issues. Each of these liaisons was done in secret and patient made attempts to hide it from her partner. Looking at the specific pattern and conscious choices made, patient's liaison/dysregulated moments seems more like trauma induced dysregulation and much less a manic episode; patient denies sleeplessness. While talking with jingle writer, patient is bouncing around the room while talking, but she is talking about highly emotional topics and it remains quite possibly explained by ADHD and patient is able to sit quietly and talk and listen. Discussed medication options, risks/side effects and patient is comfortable with trying Effexor and Intuniv. Patient understands that if she does have bipolar disorder that Effexor could trigger a manic episode but agrees it is currently worth the risk to avoid getting on a mood stabilizer unnecessarily. -will monitor for signs of staci BUT will keep in mind that ADHD/trauma can look very much like staci. 02/21: no changes. tolerating effexor well 02/22: no changes. Wants to discuss with primary team space guanfacine versus stimulants for ADHD 02/23 Patient reports that overall she is feeling better, less depressed, more hopeful; still anxious. Discussed her efforts on coping with her emotions she feels she is much improved. Good conversations with her partner Cam. Discussed medications and diagnosis and jingle writer continues with diagnosis of PTSD/ADHD. Intuniv not doing anything for ADHD symptoms and though it low-dose, would like to try patient on Adderall; reviewed risks/side effects including triggering manic episode and patient agrees Plan CV Q 15 minute checks Start Adderall XL [id number] mg Likely DC Intuniv ER 1 mg daily for ADHD and anxiety DC Trileptal; patient does not want right now Patient educated on: diagnosis, medication risk/benefits and therapeutic strategies Informed Consent: understands Reason for continued inpatient stay Substantial Risk for: stable for discharge Time Spent With Patient Time: Total time managing care of this patient today ____ minutes.
[2025-02-23 20:00] VITALS: BP 139/70; PULSE 97; TEMP 36.8; O2SAT 97
[2025-02-24 08:00] VITALS: BP 109/61; PULSE 97; TEMP 37.1; O2SAT 99
[2025-02-24] MEDS: Dextroamphetamine/Amphetamine XR 10 MG CAP.ER.24H PO (08:50)
[2025-02-24] MEDS: guanFACINE HCl ER 1 MG TAB.ER.24H PO (08:50)
[2025-02-24] MEDS: Venlafaxine HCl ER 75 MG CAP.ER.24H PO (08:50)
[2025-02-24] MEDS: Flu Vacc TS2025-26(6mo up)/PF 0.5 ML SYRINGE IM (10:01)
[2025-02-24] MEDS: Dextroamphetamine/Amphetamine XR 5 MG CAP.ER.24H PO (12:15)
--- NOTE | 2025-02-24 16:04 | P.PNPSI_ITS ---
Subjective Subjective Date of Service: 02/24/25 Reason For Visit: PTSD Bipoar disorder Interim History: Met with patient; discussed with team Patient feels that Adderall 15 mg has been a little helpful and notices her ability to remain more calm and less fidgety during groups; still bopping around the milieu though a little more subdued. Feels that mood is much improved with medication. Agrees to titrate Adderall Mental Status Exam Mental Status Exam Narrative: Pt is alert and oriented; behavior is hyperactive at times; intermittently emotionally dysregulated but also able to be calm; cooperative, friendly; patient is not in distress; dressed in hospital attire with adequate grooming and hygiene; mood is described good and affect overall congruent, though remains emotionally reactive; eye contact appropriate; Speech is a little verbose not pressured; no psychomotor agitation present; thought process is organized and goal directed; Thought content is on her behaviors, her relationship, treatment; otherwise pertinent to relevant topics and without any delusional content, paranoid ideations or grandiosity; no SI/no HI. Denies AVH and there is no evidence of perceptual disturbance. Patients insight and judgment fair Diagnostics Vital Signs (24Hr): Vital Signs - 24 hr 02/23/25 20:00 02/24/25 08:00 Temperature 98.2 F 98.7 F Pulse Rate 97 97 Blood Pressure 139/70 109/61 Pulse Oximetry 97 99 Oxygen Delivery Method Room Air Room Air BMI result Body Mass Index 24.0 Labs 02/18/25 15:21 02/18/25 15:21 Medications Medications Current Medications Acetaminophen (Acetaminophen 325 Mg Tablet) 650 mg PO Q6H PRN PRN Reason: Headache/Pain, Scale 1-10 Last Admin: 02/21/25 23:06 Dose: 650 mg Al Hydroxide/Mg Hydroxide (Magnesium Hydrox/Alum Hydrox 30 Ml Oral.Susp) 30 ml PO Q6H PRN PRN Reason: Heartburn/Nausea Amphetamine/Dextroamphetamine (Dextroamphetamine/Amphetamine Xr 10 Mg Cap.Er.24h) 20 mg PO DAILY AAKASH Hydroxyzine HCl (Hydroxyzine Hcl 25 Mg Tablet) 25 mg PO RQ6H PRN PRN Reason: Anxiety Last Admin: 02/21/25 16:09 Dose: 25 mg Magnesium Hydroxide (Milk Of Magnesia 30 Ml Oral.Susp) 30 ml PO DAILY PRN PRN Reason: Constipation Nicotine (Nicotine 21 Mg Patch.Td24) 21 mg TRANSDERMA DAILY PRN PRN Reason: nicotine craving Nicotine Polacrilex (Nicotine Polacrilex 2 Mg Gum) 4 mg BUCCAL Q2H PRN PRN Reason: Nicotine Cravings Last Admin: 02/22/25 23:24 Dose: 4 mg Olanzapine (Olanzapine 5 Mg Tablet) 5 mg PO Q4H PRN PRN Reason: agitation Last Admin: 02/19/25 19:47 Dose: 5 mg Trazodone HCl (Trazodone Hcl 50 Mg Tablet) 50 mg PO BEDTIME MRX1 PRN PRN Reason: Insomnia Venlafaxine HCl (Venlafaxine Hcl Er 75 Mg Cap.Er.24h) 75 mg PO DAILY AAKASH Last Admin: 02/24/25 08:50 Dose: 75 mg Allergies Allergies Allergy/AdvReac Type Severity Reaction Status Date / Time haloperidol (From HALDOL) Allergy Severe DIFFICULTY Verified 02/18/25 14:40 BREATHING Sulfa (Sulfonamide Allergy Mild HIVES Verified 02/18/25 14:40 Antibiotics) (SULFA (SULFONAMIDE ANTIBIOTICS)) Assessment & Plan Assessment & Plan (1) Bipolar disorder, unspecified: Status: Suspected Code(s): F31.9 - Bipolar disorder, unspecified (2) PTSD (post-traumatic stress disorder): Status: Acute Code(s): F43.10 - Post-traumatic stress disorder, unspecified (3) Suicidal ideation: Status: Acute Code(s): R45.851 - Suicidal ideations (4) Tetrahydrocannabinol (THC) use disorder, moderate, dependence: Status: Acute Code(s): F12.20 - Cannabis dependence, uncomplicated Plan HPI: Patient is a 24 y.o single Omani speaking with PTSD and possible Bipolar who [place] [facility] [place] [facility] [place] EMS that she contacted for herself. Upon arrival patient reported increased suicidal ideation with fleeting thoughts and stated: I don' t care if I am or alive at this point and I have tried in the past . She reported that her previous admission to was beneficial however, she was not agreeable to take medications as she was previously doing well without any and indicated that the prescriber encouraged her to take medications however, allowed for her to discharge without any. Pt stated: I really thought I could do it without medications, but the doctor told me I was manic and I should have listened. I came back before things got really bad, I know I need help . Formulation/clinical reasoning: increasing in stress, increasing in anxiety and manic behaviors with passive SI, not accept medication from previous admission, not having OP prescriber. Currently not on meds. Not able to follow through appointment with OP therapist as the therapist was not able to meet her request- meeting once weekly instead of twice monthly. hx of PTSD, and possible Bipolar. Given the above information, patient would benefit from restrictive environment, medication management, and refer patient to outpatient psychiatric services for aftercare. Hospital course: 02/19/25: start on Trileptal 150mg BID for mood. Plan to titrate up to therapeutic dose targeting hypomanic behaviors. Monitor for Sodium level. Currently WNL. Zyprexa 5mg BID PRN for agitation/severe anxiety. 02/20 Patient shared about events over the past months leading to this admission. Like last admission, proposal writer and patient trying to discern whether or not patient is dysregulated behaviors are due to a combination of trauma and ADHD or if there due to a bipolar disorder and represent discrete manic episodes. Patient shared about her struggles dealing with trauma how confused she feels at times. At last admission, proposal writer remained unsure diagnosis. Currently, Lean towards trauma/ADHD (vs bipolar): Patient described her liaisons with other men saying they seem to be triggered when feeling neglected by her current boyfriend, prompting feelings of loneliness; she also says she is drawn to older men and says she thinks she has daddy issues. Each of these liaisons was done in secret and patient made attempts to hide it from her partner. Looking at the specific pattern and conscious choices made, patient's liaison/dysregulated moments seems more like trauma induced dysregulation and much less a manic episode; patient denies sleeplessness. While talking with proposal writer, patient is bouncing around the room while talking, but she is talking about highly emotional topics and it remains quite possibly explained by ADHD and patient is able to sit quietly and talk and listen. Discussed medication options, risks/side effects and patient is comfortable with trying Effexor and Intuniv. Patient understands that if she does have bipolar disorder that Effexor could trigger a manic episode but agrees it is currently worth the risk to avoid getting on a mood stabilizer unnecessarily. -will monitor for signs of staci BUT will keep in mind that ADHD/trauma can look very much like staci. 02/21: no changes. tolerating effexor well 02/22: no changes. Wants to discuss with primary team space guanfacine versus stimulants for ADHD 02/23 Patient reports that overall she is feeling better, less depressed, more hopeful; still anxious. Discussed her efforts on coping with her emotions she feels she is much improved. Good conversations with her partner Cam. Discussed medications and diagnosis and proposal writer continues with diagnosis of PTSD/ADHD. Intuniv not doing anything for ADHD symptoms and though it low-dose, would like to try patient on Adderall; reviewed risks/side effects including triggering manic episode and patient agrees 02/24 Patient feels that Adderall 15 mg has been a little helpful and notices her ability to remain more calm and less fidgety during groups; still bopping around the milieu though a little more subdued. Feels that mood is much improved with medication. Agrees to titrate Adderall and DC of guanfacine Plan CV Q 15 minute checks Increase to Adderall XL 20 mg mg DC Intuniv DC Trileptal; patient does not want right now Patient educated on: diagnosis, medication risk/benefits and therapeutic strategies Informed Consent: understands Reason for continued inpatient stay Substantial Risk for: stable for discharge Time Spent With Patient Time: Total time managing care of this patient today ____ minutes.
[2025-02-24 20:00] VITALS: BP 132/67; PULSE 90; TEMP 36.9; O2SAT 97
[2025-02-25 08:00] VITALS: BP 120/56; PULSE 77; RESP 16; TEMP 36.1; O2SAT 100
[2025-02-25] MEDS: Venlafaxine HCl ER 75 MG CAP.ER.24H PO (08:53)
[2025-02-25] MEDS: Dextroamphetamine/Amphetamine XR 10 MG CAP.ER.24H 20 MG PO (08:53)
--- NOTE | 2025-02-25 10:04 | HO.PSYCHPN ---
Subjective Subjective Date of Service: 02/25/25 Reason For Visit: PTSD Bipoar disorder Interim History: met with patient; discussed with team Doing much better with Adderall, much more calm, able to not fidget, sits still during groups and conversations. Patient reports that she feels more calm in her mind and able to focus. She shared about dealing with a relational conflict with her boyfriend and instead of reacting emotionally, expressed her needs took responsibility for her own actions, and interaction of which patient was proud. Patient feels ready for discharge Mental Status Exam Mental Status Exam Narrative: Pt is alert and oriented; behavior is hyperactive at times; intermittently emotionally dysregulated but also able to be calm; cooperative, friendly; patient is not in distress; dressed in hospital attire with adequate grooming and hygiene; mood is described good and affect overall congruent, though remains emotionally reactive; eye contact appropriate; Speech is a little verbose not pressured; no psychomotor agitation present; thought process is organized and goal directed; Thought content is on her behaviors, her relationship, treatment; otherwise pertinent to relevant topics and without any delusional content, paranoid ideations or grandiosity; no SI/no HI. Denies AVH and there is no evidence of perceptual disturbance. Patients insight and judgment fair Diagnostics Vital Signs (24Hr): Vital Signs - 24 hr 02/24/25 20:00 02/25/25 08:00 Temperature 98.5 F 96.9 F Pulse Rate 90 77 Respiratory Rate 16 Blood Pressure 132/67 120/56 L Pulse Oximetry 97 100 Oxygen Delivery Method Room Air Room Air BMI result Body Mass Index 24.0 Labs 02/18/25 15:21 02/18/25 15:21 Medications Medications Current Medications Acetaminophen (Acetaminophen 325 Mg Tablet) 650 mg PO Q6H PRN PRN Reason: Headache/Pain, Scale 1-10 Last Admin: 02/24/25 21:36 Dose: 650 mg Al Hydroxide/Mg Hydroxide (Magnesium Hydrox/Alum Hydrox 30 Ml Oral.Susp) 30 ml PO Q6H PRN PRN Reason: Heartburn/Nausea Amphetamine/Dextroamphetamine (Dextroamphetamine/Amphetamine Xr 10 Mg Cap.Er.24h) 20 mg PO DAILY AAKASH Last Admin: 02/25/25 08:53 Dose: 20 mg Hydroxyzine HCl (Hydroxyzine Hcl 25 Mg Tablet) 25 mg PO RQ6H PRN PRN Reason: Anxiety Last Admin: 02/21/25 16:09 Dose: 25 mg Magnesium Hydroxide (Milk Of Magnesia 30 Ml Oral.Susp) 30 ml PO DAILY PRN PRN Reason: Constipation Nicotine (Nicotine 21 Mg Patch.Td24) 21 mg TRANSDERMA DAILY PRN PRN Reason: nicotine craving Nicotine Polacrilex (Nicotine Polacrilex 2 Mg Gum) 4 mg BUCCAL Q2H PRN PRN Reason: Nicotine Cravings Last Admin: 02/25/25 00:44 Dose: 4 mg Olanzapine (Olanzapine 5 Mg Tablet) 5 mg PO Q4H PRN PRN Reason: agitation Last Admin: 02/19/25 19:47 Dose: 5 mg Trazodone HCl (Trazodone Hcl 50 Mg Tablet) 50 mg PO BEDTIME MRX1 PRN PRN Reason: Insomnia Venlafaxine HCl (Venlafaxine Hcl Er 75 Mg Cap.Er.24h) 75 mg PO DAILY AAKASH Last Admin: 02/25/25 08:53 Dose: 75 mg Allergies Allergies Allergy/AdvReac Type Severity Reaction Status Date / Time haloperidol (From HALDOL) Allergy Severe DIFFICULTY Verified 02/18/25 14:40 BREATHING Sulfa (Sulfonamide Allergy Mild HIVES Verified 02/18/25 14:40 Antibiotics) (SULFA (SULFONAMIDE ANTIBIOTICS)) Assessment & Plan Assessment & Plan (1) Bipolar disorder, unspecified: Status: Suspected Code(s): F31.9 - Bipolar disorder, unspecified (2) PTSD (post-traumatic stress disorder): Status: Acute Code(s): F43.10 - Post-traumatic stress disorder, unspecified (3) Suicidal ideation: Status: Acute Code(s): R45.851 - Suicidal ideations (4) Tetrahydrocannabinol (THC) use disorder, moderate, dependence: Status: Acute Code(s): F12.20 - Cannabis dependence, uncomplicated Plan HPI: Patient is a 24 y.o single [place]ian speaking with PTSD and possible Bipolar who presented to [facility] via EMS that she contacted for herself. Upon arrival patient reported increased suicidal ideation with fleeting thoughts and stated: I don' t care if I am or alive at this point and I have tried in the past . She reported that her previous admission to was beneficial however, she was not agreeable to take medications as she was previously doing well without any and indicated that the prescriber encouraged her to take medications however, allowed for her to discharge without any. Pt stated: I really thought I could do it without medications, but the doctor told me I was manic and I should have listened. I came back before things got really bad, I know I need help . Formulation/clinical reasoning: increasing in stress, increasing in anxiety and manic behaviors with passive SI, not accept medication from previous admission, not having OP prescriber. Currently not on meds. Not able to follow through appointment with OP therapist as the therapist was not able to meet her request- meeting once weekly instead of twice monthly. hx of PTSD, and possible Bipolar. Given the above information, patient would benefit from restrictive environment, medication management, and refer patient to outpatient psychiatric services for aftercare. Hospital course: 02/19/25: start on Trileptal 150mg BID for mood. Plan to titrate up to therapeutic dose targeting hypomanic behaviors. Monitor for Sodium level. Currently WNL. Zyprexa 5mg BID PRN for agitation/severe anxiety. 02/20 Patient shared about events over the past months leading to this admission. Like last admission, rewriter and patient trying to discern whether or not patient is dysregulated behaviors are due to a combination of trauma and ADHD or if there due to a bipolar disorder and represent discrete manic episodes. Patient shared about her struggles dealing with trauma how confused she feels at times. At last admission, rewriter remained unsure diagnosis. Currently, Lean towards trauma/ADHD (vs bipolar): Patient described her liaisons with other men saying they seem to be triggered when feeling neglected by her current boyfriend, prompting feelings of loneliness; she also says she is drawn to older men and says she thinks she has daddy issues. Each of these liaisons was done in secret and patient made attempts to hide it from her partner. Looking at the specific pattern and conscious choices made, patient's liaison/dysregulated moments seems more like trauma induced dysregulation and much less a manic episode; patient denies sleeplessness. While talking with rewriter, patient is bouncing around the room while talking, but she is talking about highly emotional topics and it remains quite possibly explained by ADHD and patient is able to sit quietly and talk and listen. Discussed medication options, risks/side effects and patient is comfortable with trying Effexor and Intuniv. Patient understands that if she does have bipolar disorder that Effexor could trigger a manic episode but agrees it is currently worth the risk to avoid getting on a mood stabilizer unnecessarily. -will monitor for signs of staci BUT will keep in mind that ADHD/trauma can look very much like staci. 02/21: no changes. tolerating effexor well 02/22: no changes. Wants to discuss with primary team space guanfacine versus stimulants for ADHD 02/23 Patient reports that overall she is feeling better, less depressed, more hopeful; still anxious. Discussed her efforts on coping with her emotions she feels she is much improved. Good conversations with her partner Cam. Discussed medications and diagnosis and rewriter continues with diagnosis of PTSD/ADHD. Intuniv not doing anything for ADHD symptoms and though it low-dose, would like to try patient on Adderall; reviewed risks/side effects including triggering manic episode and patient agrees 02/24 Patient feels that Adderall 15 mg has been a little helpful and notices her ability to remain more calm and less fidgety during groups; still bopping around the milieu though a little more subdued. Feels that mood is much improved with medication. Agrees to titrate Adderall and DC of guanfacine 02/25 Doing much better with Adderall, much more calm, able to not fidget, sits still during groups and conversations. Patient reports that she feels more calm in her mind and able to focus. She shared about dealing with a relational conflict with her boyfriend and instead of reacting emotionally, expressed her needs took responsibility for her own actions, and interaction of which patient was proud. Mood remains good and patient optimistic. Patient feels ready for discharge Patient remains in good behavioral and impulse control, good mood, appropriate with peers and staff and engaged in treatment. She is optimistic, future oriented and enthusiastic about starting outpatient therapy. Patient is not in imminent risk for harm to self or others and appropriate to return to the community for treatment Plan CV Q 15 minute checks Increase to Adderall XL 20 mg [id number] mg DC Intuniv DC Trileptal; patient does not want right now Patient educated on: diagnosis, medication risk/benefits and therapeutic strategies Informed Consent: understands Reason for continued inpatient stay Substantial Risk for: stable for discharge Time Spent With Patient Time: Total time managing care of this patient today ____ minutes.
[2025-02-25 18:00] LABS: Cannabinoid Screen Urine POSITIVE (Not Detect)
[2025-02-25 20:08] VITALS: BP 160/87; PULSE 81; RESP 18; TEMP 36.5; O2SAT 99
[2025-02-25] MEDS: Benzocaine 20 % Oral Gel 9 GM TUBE 1 APPL MUCOUS MEM (21:11)
[2025-02-26 08:00] VITALS: BP 118/58; PULSE 80; TEMP 36.3; O2SAT 100
[2025-02-26] MEDS: Dextroamphetamine/Amphetamine XR 10 MG CAP.ER.24H 20 MG PO (08:41)
[2025-02-26] MEDS: Venlafaxine HCl ER 75 MG CAP.ER.24H PO (08:42)
--- NOTE | 2025-02-26 09:16 | PM.PSYDC ---
DS: Providers Provider Date of Service: 02/26/25 Date of admission: 02/19/25 12:32 Date of discharge: 02/26/25 Primary care physician: Unknown Physician Admitting clinician: Mariel Burkett Attending physician on discharge: Félix Jennings DS: Diagnosis Discharge Diagnosis (1) Bipolar disorder, unspecified: Status: Suspected (2) PTSD (post-traumatic stress disorder): Status: Acute (3) Suicidal ideation: Status: Acute (4) Tetrahydrocannabinol (THC) use disorder, moderate, dependence: Status: Acute DS: Medications Discharge Medications Home Medications: Previous Rx's ?Medication ?Instructions ?Recorded dextroamphetamine-amphetamine ER 20 mg PO DAILY 30 days #30 caps 02/25/25 20 mg 24hr capsule,extend release (Adderall XR) hydroxyzine HCl 25 mg tablet 25 mg PO RQ6H PRN Anxiety 30 days 02/25/25 #60 tabs nicotine (polacrilex) 2 mg gum 2 mg buccal Q2H PRN Nicotine 02/25/25 Cravings 30 days #100 ea venlafaxine 75 mg capsule,extended 75 mg PO DAILY 30 days #30 caps 02/25/25 release 24 hr benzocaine 20 % mucosal gel 1 appl mucous membrane QID PRN 02/26/25 (Anbesol (benzocaine) Maximum Mouth Sore Pain 15 days #9 grams Strength) Mental Status Exam Mental Status Exam Narrative: Pt is alert and oriented; behavior is hyperactive at times but less so; intermittently emotionally reactive but much less so much more able to implement coping skills; remains cooperative, friendly and engaged; patient is not in distress; dressed in hospital attire with adequate grooming and hygiene; mood is described good and affect congruent, bright, calm; eye contact appropriate; Speech is a little verbose not pressured; no psychomotor agitation present; thought process is organized and goal directed; Thought content is on her behaviors, her relationship, treatment; otherwise pertinent to relevant topics and without any delusional content, paranoid ideations or grandiosity; no SI/no HI. Denies AVH and there is no evidence of perceptual disturbance. Patients insight and judgment fair Data Data Completed and Pending Completed studies during hospitalization [Text1]: 02/25/25 17:30 Urine Opiates Screen Not Detected Ur Buprenorphine Scrn Not Detected Ur Oxycodone Screen Not Detected Urine Methadone Screen Not Detected Urine Fentanyl Screen Not Detected Ur Barbiturates Screen Not Detected Ur Phencyclidine Scrn Not Detected Ur Amphetamines Screen POSITIVE H U Benzodiazepines Scrn Not Detected Urine Cocaine Screen Not Detected U Marijuana (THC) Screen POSITIVE H DS: Summary Hospital Course Hospital Course: HPI: Patient is a 24 y.o single [place] speaking with PTSD and possible Bipolar who [place] [facility] [place] that she contacted for herself. Upon arrival patient reported increased suicidal ideation with fleeting thoughts and stated: I don' t care if I am or alive at this point and I have tried in the past . She reported that her previous admission to [facility] was beneficial however, she was not agreeable to take medications as she was previously doing well without any and indicated that the prescriber encouraged her to take medications however, allowed for her to discharge without any. Pt stated: I really thought I could do it without medications, but the doctor told me I was manic and I should have listened. I came back before things got really bad, I know I need help . Formulation/clinical reasoning: increasing in stress, increasing in anxiety and manic behaviors with passive SI, not accept medication from previous admission, not having OP prescriber. Currently not on meds. Not able to follow through appointment with OP therapist as the therapist was not able to meet her request- meeting once weekly instead of twice monthly. hx of PTSD, and possible Bipolar. Given the above information, patient would benefit from restrictive environment, medication management, and refer patient to outpatient psychiatric services for aftercare. Hospital course: On admission, patient depressed and with ongoing, triggering PTSD symptoms with nightmares and subsequent flashbacks. Patient SI resolved but patient with significant self-deprecating thoughts. Initially started on Trileptal however discussed history, potential diagnoses and medications in detail and decided otherwise. Patient shared about events over the past months leading to this admission. Like last admission, freelance copywriter and patient trying to discern whether or not patient's dysregulated behaviors are due to a combination of trauma and ADHD or... if they are due to a bipolar disorder and represent discrete manic episodes. Patient shared about her struggles dealing with trauma how confused she feels at times. Currently, Lean towards trauma/ADHD (vs bipolar): Patient described her liaisons with other men saying they seem to be triggered when feeling neglected by her current boyfriend, prompting feelings of loneliness; she also says she is drawn to older men and says she thinks she has daddy issues. Each of these liaisons was done in secret and patient made attempts to hide it from her partner. Looking at the specific pattern and conscious choices made, patient's liaison/dysregulated moments seems more like trauma induced dysregulation and much less a manic episode; patient denies sleeplessness. While talking with freelance copywriter, patient is bouncing around the room while talking, but she is talking about highly emotional topics and it remains quite possibly explained by ADHD and patient is able to sit quietly and talk and listen. Discussed medication options, risks/side effects and patient is comfortable with trying Effexor and Intuniv. Patient understands that if she does have bipolar disorder that Effexor could trigger a manic episode but agrees it is currently worth the risk to avoid getting on a mood stabilizer unnecessarily. Over subsequent days, patient remained hyperactive however did not seem manic; intermittent moments of emotional reactivity but able to calmed down and returned to baseline. Patient tolerated Effexor well which was titrated to 75 mg. Patient's depression abated, anxiety significantly lowered and she felt much less emotionally reactive. Patient with history of ADHD and initially started on Intuniv however did not seem all that effective and instead was started on Adderall (pt has numerous symptoms of ADHD and had positive result on ASRS-v1.1). Patient, freelance copywriter and nursing staff agree that on Adderall, patient was more calm, fidgeted much less, better able to remain on topic during conversations and overall in better self-control. Patient added that she felt her mind was more calm and focused as well. Patient remained in overall good behavioral and impulse control throughout her time on the unit. She was engaged in treatment and appropriate with peers and staff, eating sleeping well future oriented, optimistic about continued stability and enthusiastic about starting outpatient therapy. 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 Patient consistently meeting with her boyfriend who remains supportive. Patient felt ready for discharge. Team agreed that she was not in imminent risk for harm to self or others and appropriate to return to the community for treatment. Impression: Diagnosis will remain PTSD, MDD and ADHD; will of course keep in mind past wonderings about bipolar disorder but currently patient is doing much better, tolerating Effexor and Adderall and currently the combination of PTSD and ADHD continue to best explain her symptoms. Medication: Started on venlafaxine ER 75 mg daily Started on Adderall XL 20 mg daily Time spent discussing smoking cessation with patient: 3 to 10 minutes Status at Discharge Functional status at discharge: independent ambulation Overall status at discharge: patient is back to baseline Time Spent with Patient Time attestation: Total time managing care of this patient today _40___ minutes. Time spent: Greater than 30 minutes Specific discharge activities: Met with patient; discussed with team; charting; prescriptions Discharge Plan Discharge Anticipated Discharge Date/Time: 02/26/25 11:16 Patient Disposition: Home, Self-Care Discharge Diagnosis: PTSD, chronic with acute exacerbation Referrals: [facility] Intake w Lvoely Chun [Other] - 03/03/25 11:00 am Referral Note: In person appointment. [facility] Eval renetta Graham [Other] - 03/25/25 5:20 pm [facility] renetta Graham [Other] - 04/23/25 6:00 pm Physician,Unknown J [Primary Care Provider, Medical] - 1 Week Discharge Medications: New dextroamphetamine-amphetamine [Adderall XR] 20 mg capsule,extended release 24hr 20 mg PO DAILY 30 Days Qty: 30 0RF Rx Instructions: Partial Fill upon patient request. nicotine (polacrilex) 2 mg Gum 2 mg buccal Q2H PRN (Reason: Nicotine Cravings) 30 Days Qty: 100 1RF venlafaxine 75 mg Capsule,Extended Release 24hr 75 mg PO DAILY 30 Days Qty: 30 1RF hydroxyzine HCl 25 mg Tablet 25 mg PO RQ6H PRN (Reason: Anxiety) 30 Days Qty: 60 1RF Anbesol (benzocaine) Max Str 20 % Gel 1 appl mucous membrane QID PRN (Reason: Mouth Sore Pain) 15 Days Qty: 9 0RF Protocol: Apply to: Apply to: gum/tongue Rx Instructions: apply to affected areas Discharge Orders: Discharge Order (Routine); Ordered 02/26/25 Ordered By: Félix Jennings Diet: Regular diet Activity on Discharge: As tolerated Stand Alone Forms: Patient Portal Discharge page, Community Support Print Language: [place] Care Plan Goals: Maintain mood and safe behaviors Take medications as prescribed Practice coping skills Continue with outpatient providers and reach out to them as needed Health Concerns: Mood stability and behaviors Plan of Treatment: Follow up with your PCP, psychiatric provider and other outpatient providers regarding above concerns Take medications as prescribed Assessment: Risk assessment at time of discharge:? Patient was interviewed prior to discharge and found to be fully oriented and without any SI or HI. Patient has improved insight and judgment and wants to continue treatment. Patient is not in imminent risk of harm to self or others and has a safety plan that includes presenting to the closest ER or calling 911 if feeling unsafe.? Patient has been observed closely by nursing and unit staff throughout admission; patient has not engaged in any behaviors that suggest dangerousness to self or others and has demonstrated appropriate behaviors and impulse control
== END 2025-02-26 12:54 | disposition home or self-care (01) | DRG 753 ==
LOC: HO.ED 02-19 07:40 → HO.PM5 02-19 12:47
PROVIDERS: Physician Assistant; Admitting Provider Clinical Nurse Specialist Psychiatric/Mental Health, Adult; Emergency Provider Emergency Medicine; Visit Provider Psychiatry & Neurology Psychiatry
DX: F31.9 Bipolar disorder, unspecified (principal); R45.851 Suicidal ideations; F43.11 Post-traumatic stress disorder, acute; F12.20 Cannabis dependence, uncomplicated; F90.9 Attention-deficit hyperactivity disorder, unspecified type; F43.12 Post-traumatic stress disorder, chronic; F17.210 Nicotine dependence, cigarettes, uncomplicated; Z71.6 Tobacco abuse counseling; Z23 Encounter for immunization; Z79.899 Other long term (current) drug therapy
CPT/HCPCS: 36415; 80053; 80307; 81001; 84702; 85025; 90656; 93005; 99285; S9485

== ENCOUNTER 2025-02-19 12:32 | Outpatient (BNV) | payer MEDICAID, SELFPAY | END 2025-02-19 14:39 | PROVIDERS: Admitting Provider Clinical Nurse Specialist Psychiatric/Mental Health, Adult; Emergency Provider Emergency Medicine; Visit Provider Internal Medicine Cardiovascular Disease | DX: Z13.6 Encounter for screening for cardiovascular disorders (principal) | CPT/HCPCS: 93010 ==

== ENCOUNTER → 2025-02-19 12:32 | Outpatient (BNV) | payer OTHER, SELFPAY | PROVIDERS: Admitting Provider Clinical Nurse Specialist Psychiatric/Mental Health, Adult; Emergency Provider Emergency Medicine; Visit Provider Psychiatry & Neurology Psychiatry | DX: F31.0 Bipolar disorder, current episode hypomanic (principal); F12.20 Cannabis dependence, uncomplicated; F43.11 Post-traumatic stress disorder, acute; R45.851 Suicidal ideations | CPT/HCPCS: 90792; 99232 ==

== ENCOUNTER → 2025-02-19 12:32 | Outpatient (BNV) | payer MEDICAID, SELFPAY | PROVIDERS: Admitting Provider Clinical Nurse Specialist Psychiatric/Mental Health, Adult; Emergency Provider Emergency Medicine; Visit Provider Nurse Practitioner Family | DX: R45.851 Suicidal ideations (principal) | CPT/HCPCS: 99221 ==